=== PATIENT | female | born 1985 | race Caucasian/White ===

== ENCOUNTER 2017-01-04 08:55 | Inpatient (IN) | payer OTHER ==
[~2017-01-04] VITALS: Ht 162.6 cm; Wt 65.0 kg
[2017-01-04] VITALS (29 sets, daily range): BP systolic 94–138; BP diastolic 66–122; PULSE 88–128; RESP 18; TEMP 91; Ht 162.6 cm; Wt 65.0 kg
[~2017-01-04 08:55] MED LIST: EPINEPHrine 0.1 MG/ML SYG ONE; NA BICARBONATE 8.4% 50 ML SYG ONE
[2017-01-04] MEDS ORDERED: SOD CHLORIDE 0.9% 1,000 ML IV STA (09:23)
[2017-01-04] MEDS ORDERED: SOD CHLORIDE 0.9% 100 ML ONE (09:35)
[2017-01-04] MEDS ORDERED: IOHEXOL 100 ML ONE (09:35)
[2017-01-04 09:40] LABS: ADD SCAN DIFF NO
--- NOTE | 2017-01-04 09:41 | ERA ---
ER Documentation Chief Complaint Date/Time DATE: 01/04/17 TIME: 09:30 Chief Complaint BIB RA @0850 INTUBATED CPR IN PROGRESS , PEA ON MONITOR HPI Patient is a 31-year-old female brought in by ambulance for cardiac arrest. Per report the patient was drinking heavily last night. She appeared somewhat intoxicated this morning, and complained of shortness of breath. She then became unresponsive. No bystander CPR was performed. Paramedics were called, and found the patient to be pulseless with ventricular fibrillation. She was defibrillated for V. fib and V. tach 5 times, with conversion to narrow complex tachycardia without pulse. She was given amiodarone bolus, and 4 amp of epinephrine. She was intubated in the field. Past medical history of hypertension only was obtained from family. Approximate transport time was 25 minutes from arrival of EMS. ROS All systems reviewed and are negative except as per history of present illness. Medications Home Meds Unable to Obtain Active Prescriptions or Reported Meds Allergies Allergies: Coded Allergies: Unable to Assess (Verified Allergy, Unknown, PT NONRESPONSIVE, 01/04/17) PER RN PMhx/Soc Past medical history: Hypertension, acute renal failure, pancreatitis Past surgical history: Breast implants, tummy tuck noted on exam, further history unobtainable. Social history: Drinks alcohol, other social history unobtainable. History of Surgery: Yes (BREAST IMPLANT) Anesthesia Reaction: No Hx Neurological Disorder: No Hx Respiratory Disorders: No Hx Cardiac Disorders: Yes (HTN ) Hx Psychiatric Problems: No Hx Miscellaneous Medical Probl: No Hx Alcohol Use: Yes Hx Substance Use: No (UNK ) Hx Tobacco Use: No (UNK) Smoking Status: Unknown if ever smoked FmHx Unobtainable Physical Exam Vitals Vital Signs Date Time Temp Pulse Resp B/P Pulse Ox O2 Delivery O2 Flow Rate FiO2 01/04/17 12:15 96.2 112 18 132/118 100 Mechanical Ventilator 01/04/17 11:45 97.4 119 18 117/98 100 Mechanical Ventilator 01/04/17 11:15 97.6 120 18 135/102 100 Mechanical Ventilator 01/04/17 11:05 97.6 128 18 125/110 100 Mechanical Ventilator 01/04/17 10:50 97.9 129 18 108/94 100 Mechanical Ventilator 01/04/17 10:10 112 18 116/88 100 Mechanical Ventilator 01/04/17 09:30 97.8 100 129/95 99 Mechanical Ventilator 01/04/17 09:00 128 27 97 100 01/04/17 09:00 157 111/70 94 Ambu Bag 01/04/17 08:55 132 0 0/0 0 01/04/17 08:55 Bag Valve Mask 15 Physical Exam Const: Pulseless, unresponsive Head: Atraumatic Eyes: Normal Conjunctiva, no pallor. Pupils fixed and dilated. ENT: Normal External Ears, Nose and Mouth. No signs of trauma Neck: No mass, no signs of trauma Resp: Clear to auscultation bilaterally, no rales Cardio: Irregularly irregular rhythm, tachycardia, no murmur Abd: Soft, non distended. Skin: No petechiae or rashes Ext: No cyanosis, or edema, no signs of trauma Neur: Unresponsive, no spontaneous movement Psych: Cannot assess Result Diagram: 01/04/1792401/04/17924 Results 24 hrs Laboratory Tests Test 01/04/17 09:23 01/04/17 09:25 01/04/17 10:20 01/04/17 10:46 Blood Gas Specimen Source Blood arterial Arterial Blood Date Drawn 01/04/2017 11:16:20 AM Arterial Blood pH (Temp corrected) 7.188 Arterial Blood pCO2 (Temp correct) 44.5mmhg Arterial Blood pO2 (Temp corrected) 577.9mmHG Arterial Blood HCO3 16.5mmol/L Arterial Blood Base Excess -11.3mmol/L Arterial Blood Oxygen Saturation 99.6mmHG [place] Test N/A Arterial Blood Gas Puncture Site Right Brachial Arterial Blood Carboxyhemoglobin 0.3% Arterial Blood Methemoglobin 0.6% Blood Gas A-a O2 Differential 90.6mmHg Oxyhemoglobin Percent 98.7% Total Hemoglobin 12.6g/dl Blood Gas Temperature 37.0C Blood Gas Respiration Rate 18.0 Blood Gas Actual Respiration Rate 18 Blood Gas Modality VENT - AC FiO2 100.0% Blood Gas Tidal Volume 450.0mL Blood Gas Critical Value Read Back MENG Maguire Blood Gas Notified Whom [facility] Blood Gas Notified Time 01/04/2017 11:20:50 AM White Blood Count 16.410^3/ul Red Blood Count 3.0710^6/ul Hemoglobin 10.6g/dl Hematocrit 31.6% Mean Corpuscular Volume 102.9fl Mean Corpuscular Hemoglobin 34.5pg Mean Corpuscular Hemoglobin Concent 33.5g/dl Red Cell Distribution Width 14.9% Platelet Count 04352^3/UL Mean Platelet Volume 11.5fl Neutrophils % % Lymphocytes % % Monocytes % % Neutrophils # 10^3/ul Lymphocytes # 10^3/ul Monocytes # 10^3/ul Prothrombin Time 17.0Sec Prothrombin Time Ratio 1.3 INR International Normalized Ratio 1.38 Activated Partial Thromboplast Time 35.0Sec Sodium Level 143mmol/L Potassium Level 2.4mmol/L Chloride Level 99mmol/L Carbon Dioxide Level 18mmol/L Anion Gap 28 Blood Urea Nitrogen 5mg/dl Creatinine 0.63mg/dl Glucose Level 229mg/dl Lactic Acid Level 12.7mmol/L Calcium Level 7.2mg/dl Magnesium Level 1.8mg/dl Total Bilirubin 0.5mg/dl Direct Bilirubin 0.00mg/dl Indirect Bilirubin 0.5mg/dl Aspartate Amino Transf (AST/SGOT) 417IU/L Alanine Aminotransferase (ALT/SGPT) 91IU/L Alkaline Phosphatase 301IU/L Troponin I 0.072ng/ml Total Protein 5.9g/dl Albumin 2.7g/dl Globulin 3.20g/dl Albumin/Globulin Ratio 0.84 Lipase 479U/L Serum HCG, Qualitative NEGATIVE Salicylates Level < 1.0mg/dl Acetaminophen Level < 10.0ug/ml Ethyl Alcohol Level 142.0mg/dl Urine Color LT. YELLOW Urine Clarity CLEAR Urine pH 6.0 Urine Specific [place] 1.015 Urine Ketones NEGATIVE Urine Nitrite NEGATIVE Urine Bilirubin NEGATIVE Urine Urobilinogen 0.2 E.U./dL Urine Leukocyte Esterase NEGATIVE Urine Microscopic RBC 2-5/HPF Urine Microscopic WBC 10-25/HPF Urine Epithelial Cells MODERATE Urine Bacteria FEW Urine Mucus FEW Urine Hemoglobin 2+ Urine Glucose 0.1%% Urine Total Protein 2+ Urine Opiates Screen NEGATIVE Urine Barbiturates NEGATIVE Urine Amphetamines Screen NEGATIVE Urine Benzodiazepines Screen NEGATIVE Urine Cocaine Screen NEGATIVE Urine Cannabinoids NEGATIVE Bedside Glucose 154mg/dL Test 01/04/17 11:54 01/04/17 11:55 Bedside Glucose 150mg/dL Lactic Acid Level 8.3mmol/L Current Medications Medications (Trade) Dose Ordered Sig/Deena Route PRN Reason Start Time Stop Time Status Last Admin Dose Admin Sodium Chloride 1,000 ml @ 1,000 mls/hr Q1H STAT IV 01/04/17 09:23 01/04/17 10:27 DC 01/04/17 09:35 Iohexol 100 ml @ STK-MED ONCE .ROUTE 01/04/17 09:35 01/04/17 09:36 DC Sodium Chloride 100 ml @ STK-MED ONCE .ROUTE 01/04/17 09:35 01/04/17 09:36 DC Fentanyl (Sublimaze) 100 ml @ 2.5 mls/hr TITRATE IV 01/04/17 10:00 01/04/17 10:31 Midazolam HCl (Versed) 2 mg ONCE ONCE IV 01/04/17 10:00 01/04/17 10:01 DC 01/04/17 10:21 Midazolam HCl (Versed) 2 mg ONCE ONCE IV 01/04/17 10:00 01/04/17 10:01 Cancel Fentanyl 100 mcg 100 mcg ONCE ONCE IV 01/04/17 10:00 01/04/17 10:01 DC 01/04/17 09:55 Midazolam HCl (Versed) 50 ml @ 2 mls/hr ONCE IV 01/04/17 10:30 01/04/17 10:21 Midazolam HCl 2 mg 2 mg ONCE ONCE IV 01/04/17 10:30 01/04/17 10:31 DC 01/04/17 10:31 Potassium Chloride 250 ml @ 62.5 mls/hr Q4H IVPB 01/04/17 10:30 01/04/17 18:29 01/04/17 11:22 Magnesium Sulfate (Magnesium Sulfate 2 Gm/50 ml) 50 ml @ 25 mls/hr ONCE ONCE IVPB 01/04/17 10:30 01/04/17 12:29 DC 01/04/17 10:36 Thiamine HCl 100 mg 100 mg ONCE ONCE IM 01/04/17 10:30 01/04/17 10:31 DC 01/04/17 11:23 Sodium Chloride 1,000 ml @ 1,000 mls/hr Q1H ONCE IV 01/04/17 10:30 01/04/17 11:29 DC 01/04/17 10:49 Sodium Chloride 1,860 ml @ 930 mls/hr BOLUS X1 ONCE IV 01/04/17 10:30 01/04/17 12:29 DC 01/04/17 10:50 Ceftriaxone Sodium 50 ml @ 100 mls/hr ONCE ONCE IVPB 01/04/17 10:30 01/04/17 10:31 DC Ceftriaxone Sodium (Rocephin) 50 ml @ 100 mls/hr ONCE ONCE IVPB 01/04/17 10:30 01/04/17 10:59 DC 01/04/17 11:22 Vecuronium [place] 6 mg 6 mg ONCE ONCE IV 01/04/17 11:30 01/04/17 11:32 DC 01/04/17 12:10 Vecuronium [place] 100 mg/ Dextrose 100 ml @ 3.6 mls/hr Q24H ONCE IV 01/04/17 11:30 01/05/17 11:29 01/04/17 12:19 Insulin Human Regular/Sodium Chloride (Novolin-R/NS) 100 ml @ 0 mls/hr ONCE STAT IV 01/04/17 12:02 01/04/17 12:03 DC Procedures/MDM EKG read by me: 901, rate 157 Rhythm: Rapid atrial fibrillation [place]: Rightward axis Intervals: Normal ST-T waves: Anterior ST depression, inferolateral T-wave inversion Ectopy: No Q-waves: No Impression: Rapid atrial fibrillation with anterior ST depression. Central Line Placement by me: Patient consented, sterilely draped, full prep, gown, glove, mask, time out performed. Anesthesia: None Location: Right femoral Device: Multiple lumen Technique: Ultrasound-guided. Seldinger technique. Secured with suture. Results: Venous return from all ports with easy saline flush. Arterial puncture without dilation. No evidence of postprocedure hematoma. No other complication noted. Guide wire retrieved and disposed of. ED Ultrasound: Central line placed by me using concurrent ultrasound guidance. Real time image archived in the medical record confirms vascular anatomy. MDM: Patient is a 31-year-old female with unwitnessed cardiac arrest. She was found to be in ventricular fibrillation. She was defibrillated 5 times and converted to a narrow complex rapid rhythm prior to ER arrival. There was no return of spontaneous circulation prior to ER arrival. patient was intubated prior to ER arrival. On ER arrival, CPR was continued, and 1 amp of epinephrine and 1 amp of sodium bicarbonate were administered. At the first pulse check, a femoral and carotid pulses were palpated. An EKG was obtained and showed rapid atrial fibrillation with nonspecific ST-T wave changes. ET tube placement was confirmed by auscultation and chest x-ray. A right femoral central line was placed for access in a critically ill patient. I discussed the case with Dr. Vitale, on-call senior windows systems administrator, who stated that he did not believe the patient was a good candidate for cardiac cath. The patient did not have return of neurologic function. CT head and CT pulmonary angiogram are unremarkable. Laboratory evaluation showed leukocytosis and lactic acidosis. There is no fever or signs of infection, but ceftriaxone was given for possible sepsis, and blood and urine cultures were sent. Laboratory evaluation also revealed a severe hypokalemia. Potassium of 2.4 is likely falsely elevated by the patient's acidosis, so underlying hypokalemia is likely worse. The patient was administered IV potassium and magnesium. I suspect that the cause of the patient's ventricular fibrillation is the underlying hypokalemia. The patient also had slightly elevated LFTs, and a right upper quadrant ultrasound will be obtained, although I suspect that this is related to recent alcohol abuse and cardiac arrest. The patient was given copious IV fluids, and hypothermia protocol was initiated. On further history from the patient's mother, there is no history of drug abuse, depression or suicidality. There is history of hospitalization 1 month ago for acute renal failure and pancreatitis related to alcohol abuse. The mother also states that the patient drank heavily last night. Prior to developing respiratory distress and becoming altered, she was conversant with the mother this morning. The patient will be admitted to the ICU for hypothermia protocol, treatment of electrolyte abnormalities, further septic workup and treatment of lactic acidosis. Critical Care: Time: 45 minutes exlcuding all billable procedures. Treatments/Evaluations: Close monitoring and treatment of unstable vital signs, cardiorespiratory, and neurologic status, while maintaining tight balance of fluid, respiratory, and cardiac interventions. Departure Diagnosis: Primary Impression: Cardiac arrest Additional Impressions: Lactic acidosis Atrial fibrillation with rapid ventricular response Coma Qualified Code: R40.2433 - Malcolm coma scale total score 3-8, at hospital admission Alcohol abuse Hypokalemia Condition: Critical NICOLAS FAN MD January 04, 2017 09:41
[2017-01-04 09:42] LABS: ABNORMAL IP MESSAGE 1; HEMATOCRIT 31.6 % (37.0-47.0); HEMOGLOBIN 10.6 g/dl (12.0-16.0); MEAN CORPUSCULAR HEMOGLOBIN 34.5 pg (29.0-33.0); MEAN CORPUSCULAR HGB CONC 33.5 g/dl (32.0-37.0); MEAN CORPUSCULAR VOLUME 102.9 fl (82.0-101.0); MEAN PLATELET VOLUME 11.5 fl (7.4-10.4); PLATELET COUNT 109 10^3/UL (140-415); RED BLOOD COUNT 3.07 10^6/ul (4.20-5.40); RED CELL DISTRIBUTION WIDTH 14.9 % (11.5-14.5); WHITE BLOOD COUNT 16.4 10^3/ul (4.8-10.8)
--- NOTE | 2017-01-04 09:55 | RADRPT ---
PROCEDURE: XR Chest. CLINICAL INDICATION: Cardiac arrest TECHNIQUE: Single AP view of the chest were obtained COMPARISON: None FINDINGS: The heart is moderately enlarged. An endotracheal tube extends the mid trachea. The pulmonary vascu lature are unremarkable. The aorta is unremarkable. There is no lung consolidation, pleural effusi on or pneumothorax. There is no acute osseous abnormality. IMPRESSION: Endotracheal tube appears appropriately positioned. There is moderate cardiomegaly present. RPTAT: AA .Tonya Regalado MD, Date Time Electronically viewed and signed by .Tonya Regalado MD, on 01/04/2017 09:55 .J/
[2017-01-04 09:58] LABS: ALBUMIN 2.7 g/dl (3.3-4.9); CHLORIDE 99 mmol/L (97-110); SODIUM 143 mmol/L (135-144)
[2017-01-04 10:00] LABS: BILIRUBIN,INDIRECT 0.5 mg/dl (0-1.1); BILIRUBIN,TOTAL 0.5 mg/dl (0.2-1.3); CARBON DIOXIDE 18 mmol/L (21-31); CREATININE 0.63 mg/dl (0.44-1.00); INR 1.38; PT RATIO 1.3
[2017-01-04] MEDS ORDERED: FENTAnyl 50 MCG/ML VIAL IV ONE (10:00)
[2017-01-04] MEDS ORDERED: MIDAZOLAM 1 MG/ML 2 ML INJ IV ONE ×2 (10:00→10:30)
[2017-01-04] MEDS ORDERED: MIDAZOLAM 1 MG/ML 5 ML INJ IV ONE (10:00)
[2017-01-04 10:01] LABS: ALANINE AMINOTRANSFERASE 91 IU/L (13-69); ALKALINE PHOSPHATASE 301 IU/L (42-121); ASPARTATE AMINO TRANSFERASE 417 IU/L (15-46); BLOOD UREA NITROGEN 5 mg/dl (7-20); CALCIUM 7.2 mg/dl (8.4-10.2); GLUCOSE 229 mg/dl (70-220); TOTAL PROTEIN 5.9 g/dl (6.1-8.1)
[2017-01-04 10:14] LABS: ACETAMINOPHEN < 10.0 ug/ml (10.0-30.0); POTASSIUM 2.4 mmol/L (3.5-5.1); SALICYLATE < 1.0 mg/dl (5.0-30.0)
[2017-01-04 10:15] LABS: ALBUMIN/GLOBULIN RATIO 0.84; ANION GAP 28 (8-16)
--- NOTE | 2017-01-04 10:18 | RADRPT ---
PROCEDURE: CT Chest Angiogram with contrast. CLINICAL INDICATION: Shortness of breath TECHNIQUE: CT scan of the chest with contrast was performed on a multidetector high-resolution CT scanner. The patient was scanned following the uncomplicated intravenous administration of 100 cc o f Isovue 300 contrast. Coronal and sagittal reformatted images were obtained from the axial source images. Additional 3D volumetric renderings were created. Images were reviewed on a [employer] PACS workstation. The total exam CTDI equals 49/16 mGy and the total exam DLP equals 601 mGy-cm. O ne or more of the following dose reduction techniques were used: Automated exposure control, Adjustm ent of the mA and/or kV according to patient size, and/or use of iterative reconstruction technique. COMPARISON: None available FINDINGS: Technically adequate exam for the evaluation of the pulmonary arteries to the segmental level. No in traluminal filling defects are seen. Endotracheal tube terminates above the pauline. Patchy infiltrates are identified in the bilateral l ungs with preferential involvement of the right upper lobe and superior segment right lower lobe. B ibasilar atelectasis. No mediastinal hematoma seen. No mediastinal or hilar lymphadenopathy. No significant pleural or pericardial effusion. Bilateral breast implants. Diffuse hypoattenuation of the liver. Partially imaged dilatation of the left renal collecting syst em. IMPRESSION: No evidence of pulmonary embolus. No mediastinal hematoma seen. Patchy infiltrates are identified in the bilateral lungs with preferential involvement of the right upper lobe and superior segment right lower lobe. This may be due to infection, pneumonitis, pulmona ry hemorrhage, or developing edema. No pleural or pericardial effusion. Hepatic steatosis. Partially imaged dilatation of the left renal collecting system. Consider abdominal CT or renal ult rasound for further characterization. RPTAT: AA .Kiran Calhoun MD, Date Time Electronically viewed and signed by .Kiran Calhoun MD, MD on 01/04/2017 10:18 .T/
--- NOTE | 2017-01-04 10:20 | RADRPT ---
PROCEDURE: CT Brain without contrast. CLINICAL INDICATION: Cardiac arrest; Neurologic deficit TECHNIQUE: A CT of the brain was performed on multidetector high-resolution CT scanner utilizing a xial sections from the skull base through the vertex without contrast. One or more of the following dose reduction techniques were used: Automated exposure control, Adjustment of the mA and/or kV acc ording to patient size, and/or use of iterative reconstruction technique. DOSE: CTDI = 44 mGy and the DLP = 720 mGy-cm. COMPARISON: None available FINDINGS: No acute intracranial hemorrhage, significant mass effect or midline shift. The bonilla-white different iation is grossly preserved. The ventricles are normal in size for age. Right maxillary sinus air fluid level. IMPRESSION: No acute intracranial findings. Right maxillary sinus air fluid level. RPTAT: AA .Kiran Calhoun MD, MD Date Time Electronically viewed and signed by .Kiran Calhoun MD, on 01/04/2017 10:19 .T/
[2017-01-04] MEDS: MIDAZOLAM (DRIP) 50 mg/50 mL 50 ML IV SCH ×2 (10:21→16:44)
[2017-01-04] MEDS ORDERED: CEFTRIAXONE 2 GM/50 ML (PMX) 50 ML IVPB ONE (10:30)
[2017-01-04] MEDS ORDERED: MAGNESIUM SULFATE 2 GM/50 ML 50 ML IVPB ONE (10:30)
[2017-01-04] MEDS ORDERED: THIAMINE 200 MG INJ IM ONE (10:30)
[2017-01-04] MEDS ORDERED: CEFTRIAXONE 1 GM/50 ML (PMX) 50 ML IVPB ONE (10:30)
[2017-01-04] MEDS ORDERED: SOD CHLORIDE 0.9% 1,860 ML IV ONE (10:30)
[2017-01-04] MEDS ORDERED: SOD CHLORIDE 0.9% 1,000 ML IV ONE ×2 (10:30→13:00)
[2017-01-04] MEDS: FENTAnyl (DRIP) 1000 mcg/100mL 100 ML IV SCH ×2 (10:31→21:35)
[2017-01-04 11:21] LABS: AADO2 Arterial 90.6 mmHg (7.0-24.0); Arterial Base Excess -11.3 mmol/L (-3.0-3); Arterial COHb 0.3 % (0.0-3.0); Arterial Fraction of Oxyhgb 98.7 % (93.0-99.0); Arterial HCO3 16.5 mmol/L (22.0-26.0); Arterial MetHb 0.6 % (0.0-1.5); Arterial Total Hemglobin 12.6 g/dl (12.0-18.0); MODE VENT - AC
[2017-01-04] MEDS: POTASSIUM CHLORIDE 250 ML IVPB SCH ×2 (11:22→15:25)
[2017-01-04] MEDS ORDERED: VECURONIUM 10 MG VIAL IV ONE (11:30)
[2017-01-04] MEDS ORDERED: VECURONIUM 100 MG in DEXTROSE 5% 100 ML IV ONE (11:30)
[2017-01-04 11:39] LABS: ADD UMIC YES; URINE BILIRUBIN (Dip) NEGATIVE (NEGATIVE); URINE BLOOD (Dip) 2+ (NEGATIVE); URINE COLOR LT. YELLOW (YELLOW); URINE KETONES (Dip) NEGATIVE (NEGATIVE); URINE LEUKOCYTE ESTERASE (Dip) NEGATIVE (NEGATIVE); URINE NITRITE (Dip) NEGATIVE (NEGATIVE); URINE TOTAL PROTEIN (Dip) 2+ (NEGATIVE); URINE UROBILINOGEN (Dip) 0.2 E.U./dL (0.1-1.0)
[2017-01-04 11:47] LABS: BARBITURATES NEGATIVE (NEGATIVE); BENZODIAZEPINES NEGATIVE (NEGATIVE); CANNABINOIDS NEGATIVE (NEGATIVE); COCAINE NEGATIVE (NEGATIVE); OPIATES NEGATIVE (NEGATIVE)
[2017-01-04 11:57] LABS: BACTERIA,URINE FEW; MUCUS,URINE FEW
[2017-01-04] MEDS ORDERED: INSULIN HUMAN REGULAR 100 UNIT in SOD CHLORIDE 0.9% 99 ML IV STA (12:02)
[2017-01-04] MEDS ORDERED: MULTIVITAMINS 10 ML, THIAMINE 100 MG, FOLIC ACID 1 MG, MAGNESIUM SULFATE 2 GM in SOD CH... IV ONE (13:00)
[2017-01-04] MEDS ORDERED: HYDROCODONE/APAP (5/325) TAB PO PRN (13:30)
[2017-01-04] MEDS ORDERED: MEPERIDINE 25 MG INJ IV PRN ×2 (13:30)
[2017-01-04] MEDS ORDERED: hydrALAzine 20 MG INJ IV PRN (13:30)
[2017-01-04] MEDS ORDERED: DOCUSATE SODIUM 100 MG CAP PO PRN (13:30)
[2017-01-04] MEDS ORDERED: ACETAMINOPHEN 650MG/20.3ML CUP PO PRN (13:30)
[2017-01-04] MEDS ORDERED: ACETAMINOPHEN 650 MG SUPP PR PRN (13:30)
[2017-01-04] MEDS: ACCU-CHEK XX SCH ×11 (13:30→23:36)
[2017-01-04] MEDS ORDERED: NITROGLYCERIN (SL) 0.4 MG TAB SL PRN (13:30)
[2017-01-04] MEDS ORDERED: MAGNESIUM HYDROXIDE 30ML CUP PO PRN (13:30)
[2017-01-04] MEDS ORDERED: morphine 2 MG INJ IV PRN (13:30)
[2017-01-04] MEDS ORDERED: NA PHOSPHATE/BIPHOS 133 ML ENEMA PR PRN (13:30)
[2017-01-04] MEDS ORDERED: ONDANSETRON 4 MG INJ IV PRN (13:30)
[2017-01-04] MEDS ORDERED: DEXTROSE 50% 50 ML SYRINGE IV PRN (13:30)
[2017-01-04] MEDS ORDERED: Discontinue all previous diabetes medication and insulin orders. XX ONE (13:30)
[2017-01-04] MEDS ORDERED: ALBUTEROL/IPRATROPIUM (NEB) 3 ML AMP HHN PRN (13:30)
[2017-01-04] MEDS ORDERED: Treatment of Hypoglycemia: XX SCH (13:30)
[2017-01-04] MEDS ORDERED: LORAZEPAM 2 MG INJ IV PRN (13:30)
[2017-01-04] MEDS ORDERED: NACL 0.9% 3 ML SYG IV SCH (13:30)
[2017-01-04] MEDS ORDERED: ACETAMINOPHEN 325 MG TAB PO PRN (13:30)
--- NOTE | 2017-01-04 13:31 | RADRPT ---
PROCEDURE: US Abdomen. CLINICAL INDICATION: Elevated LFTs TECHNIQUE: Multiple real-time images were acquired of the patient's right upper quadrant abdomen a nd retroperitoneum utilizing a high resolution transducer. COMPARISON: None FINDINGS: The liver demonstrates increased echogenicity. The liver is enlarged in size and no focal solid les ions are seen. The liver measures 20.6 cm in length. The portal vein is patent with normal direction of flow. No intrahepatic biliary dilatation is seen. No gallstones are identified within the gallbladder. There is a 5 mm polyp within the gallbladder. There is no pericholecystic fluid or gallbladder wall thickening. The common bile duct measures 4 m m in maximal dimension. The pancreas is not seen due to overlying bowel gas. No free fluid is identified. The right kidney is not seen due to overlying bowel gas. RPTAT: AA IMPRESSION: Mild hepatomegaly with fatty infiltration of the liver. Small polyp within the gallbladder. Pancreas and right kidney not visualized due to overlying bowel gas. .Vj White MD, MD Date Time Electronically viewed and signed by .Vj White MD, on 01/04/2017 13:31 .S/
[2017-01-04 15:51] LABS: CK-MB 21.9 ng/ml (0.0-2.4)
[2017-01-04] MEDS ORDERED: VANCOMYCIN IV PER PHARMACY XX SCH (16:00)
--- NOTE | 2017-01-04 16:00 | CONS ---
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 Initial trop was normal but will need to be trended and will be expected to be elevated with such prolonged resuscitation. Doubt CAD in this young woman and would assume other reasons such as coronary dissection would present as a STEMI. Now that she is on hypothermic protocol, will have to manage conservatively and see if her mental status recovers after which we can decide if she is a cardiac cath candidate. Severe hypokalemia: being corrected, Check again later and replete to keep K at least >4 Acute respiratory failure: secondary to above Severe acidosis: due to above Alcohol abuse Pancreatitis: secondary to alcohol abuse Shock liver: secondary to cardiac arrest H/o pancreatitis -prognosis guarded and meaningful neurologic recovery is to be determined -replete K >4, Mg>2 -trend trops -check echo Problems: Consultation Date/Type/Reason Admit Date/Time January 04, 2017 at 13:19 Date of Consultation: January 04, 2017 Type of Consultation: Cardiology Reason for Consultation VF arrest Referring Provider: EDIN BOURNE Hx of Present Illness 31 yo F with a h/o alcohol abuse, pancreatitis, who was brought in by ambulance for VF arrest. Per records, the pt was drinking heavily again last night and this am she became SOB and had witnessed arrest. She did not receive bystander CPR and when paramedics arrived, she was in VF/VT requiring multiple defibrillations. She was intubated in the field and brought to the ED. She was noted to have afib with RVR. engineering director interventional cardiology was called and the pt was deemed to not be a cardiac cath candidate presumably due to her prolonged resuscitation. The pt was placed on a hypothermia protocol. K was 2.4 on admission, pH was 7.1. Unable to obtain Past Medical History Medical History: other (unknown) Social History Alcohol Use: heavy Smoking Status: Unknown if ever smoked Exam/Review of Systems Vital Signs Vitals Vital Signs Date Time Temp Pulse Resp B/P Pulse Ox O2 Delivery O2 Flow Rate FiO2 01/04/17 15:45 97 18 117/97 96 Mechanical Ventilator 5/14/17 15:00 90.2 01/04/17 14:40 50 01/04/17 08:55 15 Exam Constitutional: No alert Head: atraumatic, normocephalic ENMT: intubated Neck: No jvd Respiratory: clear to auscultation, diminished breath sounds, No crackles/rales Cardiovascular: regular rate and rhythm, No edema Gastrointestinal: non-tender, soft Extremities: other (cool from hypothermia ) Neurological: No nl mental status Results Initial EKG: afib with RVR, nonspecific IVCD, mild ST depression throughout Result Diagram: 01/04/1792401/04/17924 Results 24 hrs Laboratory Tests Test 01/04/17 09:23 01/04/17 09:25 01/04/17 10:20 01/04/17 10:46 Blood Gas Specimen Source Blood arterial Arterial Blood Date Drawn 01/04/2017 11:16:20 AM Arterial Blood pH (Temp corrected) 7.188 *L Arterial Blood pCO2 (Temp correct) 44.5 Arterial Blood pO2 (Temp corrected) 577.9 H Arterial Blood HCO3 16.5 L Arterial Blood Base Excess -11.3 L Arterial Blood Oxygen Saturation 99.6 H Eliot Test N/A Arterial Blood Gas Puncture Site Right Brachial Arterial Blood Carboxyhemoglobin 0.3 Arterial Blood Methemoglobin 0.6 Blood Gas A-a O2 Differential 90.6 H Oxyhemoglobin Percent 98.7 Total Hemoglobin 12.6 Blood Gas Temperature 37.0 Blood Gas Respiration Rate 18.0 Blood Gas Actual Respiration Rate 18 Blood Gas Modality VENT - AC FiO2 100.0 Blood Gas Tidal Volume 450.0 Blood Gas Critical Value Read Back MENG Maguire Blood Gas Notified Whom [facility] Blood Gas Notified Time 01/04/2017 11:20:50 AM White Blood Count 16.4 H Red Blood Count 3.07 L Hemoglobin 10.6 L Hematocrit 31.6 L Mean Corpuscular Volume 102.9 H Mean Corpuscular Hemoglobin 34.5 H Mean Corpuscular Hemoglobin Concent 33.5 Red Cell Distribution Width 14.9 H Platelet Count 109 L Mean Platelet Volume 11.5 H Neutrophils % Lymphocytes % Monocytes % Neutrophils # Lymphocytes # Monocytes # Prothrombin Time 17.0 H Prothrombin Time Ratio 1.3 INR International Normalized Ratio 1.38 Activated Partial Thromboplast Time 35.0 Sodium Level 143 Potassium Level 2.4 *L Chloride Level 99 Carbon Dioxide Level 18 L Anion Gap 28 H Blood Urea Nitrogen 5 L Creatinine 0.63 Glucose Level 229 H Lactic Acid Level 12.7 *H Calcium Level 7.2 L Magnesium Level 1.8 Total Bilirubin 0.5 Direct Bilirubin 0.00 Indirect Bilirubin 0.5 Aspartate Amino Transf (AST/SGOT) 417 H Alanine Aminotransferase (ALT/SGPT) 91 H Alkaline Phosphatase 301 H Troponin I 0.072 Total Protein 5.9 L Albumin 2.7 L Globulin 3.20 Albumin/Globulin Ratio 0.84 Lipase 479 H Serum HCG, Qualitative NEGATIVE Salicylates Level < 1.0 L Acetaminophen Level < 10.0 L Ethyl Alcohol Level 142.0 Urine Color LT. YELLOW Urine Clarity CLEAR Urine pH 6.0 Urine Specific [place] 1.015 Urine Ketones NEGATIVE Urine Nitrite NEGATIVE Urine Bilirubin NEGATIVE Urine Urobilinogen 0.2 E.U./dL Urine Leukocyte Esterase NEGATIVE Urine Microscopic RBC 2-5 Urine Microscopic WBC 10-25 Urine Epithelial Cells MODERATE Urine Bacteria FEW Urine Mucus FEW Urine Hemoglobin 2+ H Urine Glucose 0.1% H Urine Total Protein 2+ H Urine Opiates Screen NEGATIVE Urine Barbiturates NEGATIVE Urine Amphetamines Screen NEGATIVE Urine Benzodiazepines Screen NEGATIVE Urine Cocaine Screen NEGATIVE Urine Cannabinoids NEGATIVE Bedside Glucose 154 Test 01/04/17 11:54 01/04/17 11:55 01/04/17 13:01 01/04/17 14:10 Bedside Glucose 150 172 Lactic Acid Level 8.3 *H 5.5 *H Test 01/04/17 14:11 01/04/17 15:16 01/04/17 15:32 Bedside Glucose 155 169 Creatine Kinase 453 H Creatine Kinase Index 4.8 Creatinine Kinase MB (Mass) 21.90 H Troponin I Pending Medications Medications Current Medications Fentanyl 100 ml @ 2.5 mls/hr TITRATE IV Last administered on 01/04/17 10:31; Admin Dose 2.5 MLS/HR; Start 01/04/17 at 10:00 Midazolam HCl 50 ml @ 2 mls/hr ONCE IV Last administered on 01/04/17 10:21; Admin Dose 2 MLS/HR; Start 01/04/17 at 10:30 Potassium Chloride 250 ml @ 62.5 mls/hr Q4H IVPB Last administered on 15:25; Admin Dose 62.5 MLS/HR; Start 01/04/17 at 10:30; Stop 01/04/17 at 18 :29 Vecuronium Check/Dextrose (Norcuron/D5W) 100 ml @ 3.6 mls/hr Q24H ONCE IV Last administered on 01/04/17t 12:19; Admin Dose 3.6 MLS/HR; Start 01/04/17 at 11:30; Stop 01/05/17 at 11:29 Ondansetron HCl (Zofran Inj) 4 mg Q6H PRN IV NAUSEA AND/OR VOMITING; Start at 13:30 Acetaminophen (Tylenol Tab) 650 mg Q6H PRN PO PAIN LEVEL 1-3 OR FEVER; Start at 13:30 Acetaminophen/ Hydrocodone Bitart ([place] (5/325)) 1 tab Q6H PRN PO MODERATE PAIN LEVEL 4-6; Start 01/04/17 at 13:30 Morphine Sulfate (morphine) 2 mg Q4H PRN IV SEVERE PAIN LEVEL 7-10; Start 01/04 at 13:30 Docusate Sodium (Colace) 100 mg Q12H PRN PO CONSTIPATION; Start 01/04/17 at 13: 30 Magnesium Hydroxide (Milk Of Mag) 30 ml DAILY PRN PO CONSTIPATION; Start at 13:30 Sodium Biphosphate/ Sodium Phosphate (Fleet Enema) 133 ml DAILY PRN [place] CONSTIPATION; Start 01/04/17 at 13:30 Pantoprazole (Protonix Iv) 40 mg DAILY@06 IV ; Start 01/05/17 at 06:00 Heparin Sodium (Porcine) (Heparin (5000 Units/0.5 ml)) 5,000 unit Q12 SC ; Start 01/04/17 at 21:00 Lorazepam 1 mg 1 mg Q1H PRN IV CONTROL WITHDRAWAL SYMPTOMS; Start 01/04/17 at 13:30 Potassium Chloride/Sodium Chloride (KCl/NS) 1,010 ml @ 100 mls/hr Q10H6M IV ; Start 01/04/17 at 13:07 Hydralazine HCl (Apresoline) 10 mg Q6H PRN IV ELEVATED BLOOD PRESSURE; Start at 13:30 Nitroglycerin (Nitroglycerin (Sl Tab) 0.4 Mg) 1 tab Q5M PRN SL ANGINA; Start at 13:30 Acetaminophen (Tylenol Supp) 650 mg Q4H PRN AK TEMP > 37C; Start 01/04/17 at 13 :30 Acetaminophen (Tylenol Liquid) 650 mg Q4H PRN PO TEMP > 37C; Start 01/04/17 at 13:30 Acetaminophen (Tylenol Supp) 500 mg Q6H [place] ; Start 01/05/17 at 13:30 Acetaminophen (Tylenol Liquid) 500 mg Q6H PO ; Start 01/05/17 at 13:30 Meperidine HCl (Demerol) 12.5 mg Q4H PRN IV POST OPERATIVE SHIVERING; Start at 13:30 Meperidine HCl (Demerol) 25 mg Q4H PRN IV POST OPERATIVE SHIVERING; Start 01/04 at 13:30 Eye Lubricant ([place] Oint) 1 applic Q6 BOTH EYES ; Start 01/04/17 at 18:00 Eye Lubricant (Artificial Tears Oph) 2 drop Q6 BOTH EYES ; Start 01/04/17 at 18: 00 Diagnostic Test (Pha) (Accu-Chek) 1 ea Q1H XX Last administered on 01/04/17t 15 :34; Admin Dose 1 EA; Start 01/04/17 at 13:30 Dextrose (D50w Syringe) 25 ml Q15M PRN IV Till BS 80 mg/dL or above x2; Start 01/04/17 at 13:30 Dextrose 50 ml 50 ml Q15M PRN IV Till BS 80 mg/dL or above x2; Start 01/04/17 at 13:30 Multivitamins 10 ml/Thiamine HCl 100 mg/Folic Acid 1 mg/Sodium Chloride 1,011.2 ml @ 125 mls/ hr DAILY@09 IVPB ; Start 01/05/17 at 09:00 Cefepime HCl (Maxipime 2gm/50 ml (Pmx)) 50 ml @ 100 mls/hr Q12 IVPB ; Start at 17:00 OLY GUZMÁN January 04, 2017 15:59
[2017-01-04 16:04] LABS: TROPONIN-I 14.6 ng/ml (0.00-0.12)
[2017-01-04] MEDS ORDERED: ASPIRIN 300 MG SUPP PR ONE (16:30)
[2017-01-04 17:01] LABS: Allen Test ACCEPTAB; Arterial Base Excess -1.4 mmol/L (-3.0-3); Arterial COHb 0.3 % (0.0-3.0); Arterial HCO3 22.2 mmol/L (22.0-26.0); Arterial MetHb 0.2 % (0.0-1.5); Arterial Total Hemglobin 12.3 g/dl (12.0-18.0); MODE VENT - AC
[2017-01-04] MEDS: CEFEPIME 2GM/50 ML (PMX) 50 ML IVPB SCH ×2 (17:25→21:35)
[2017-01-04 17:39] LABS: AADO2 Arterial 331.1 mmHg (7.0-24.0); Allen Test ACCEPTAB; Arterial Base Excess -1.7 mmol/L (-3.0-3); Arterial COHb 0.3 % (0.0-3.0); Arterial HCO3 22.1 mmol/L (22.0-26.0); Arterial MetHb 0.3 % (0.0-1.5); Arterial Total Hemglobin 12.5 g/dl (12.0-18.0); MODE VENT - AC
--- NOTE | 2017-01-04 17:52 | HP ---
DATE OF ADMISSION: 01/04/2017 CHIEF COMPLAINT: Cardiac arrest. HISTORY OF PRESENT ILLNESS: A 31-year-old female with past medical history of heavy alcohol use, pr ior pancreatitis, possible renal insufficiency 1 month ago, who was brought in by ambulance today be cause of cardiac arrest. Most of the information obtained from the ER documentation and speaking wi th the ER physician as the patient is presently intubated and on hypothermia protocol. Apparently, the patient has been drinking heavily last night and appeared somewhat intoxicated this morning and she was having shortness of breath symptoms. Apparently, a family member was around when the patien t became unresponsive and paramedics were called. The patient initially was found to be pulseless w ith Vfib arrest. It looks like she was defibrillated for Vfib and Vtach 5 times and eventually give n amiodarone as well and given 4 amps of epinephrine as well and intubated in the field, and then wa s brought into the ER. She proceeded to have atrial fibrillation with rapid rate, and pulses were a ble to be palpated. At that time, she was found with severe hypokalemia of 2.4, lactic acid of 12 o n admission as well and again the hypothermia protocol was started. PAST MEDICAL HISTORY: As stated above as well as essential hypertension. MEDICATIONS AT HOME: Unknown. PAST SURGICAL HISTORY: Based on records, breast implants and tummy tuck. SOCIAL HISTORY: Again, alcohol use. Unclear how much she drinks. The rest of the social history c ould not be obtained. HOME MEDICINES: Unknown. PHYSICAL EXAMINATION: VITAL SIGNS: T-max 97.8, presently temperature is 90.2. Pulse is 100 to 157, respirations 18 to 27 , blood pressure is 108/94, saturating at 100% on mechanical ventilation, FIO2 of 50%. GENERAL: The patient is lying in bed, intubated and sedated. HEENT: Unable to fully assess. NECK: Supple, no thyromegaly. LUNGS: Slightly distant breath sounds bilaterally. CARDIOVASCULAR: Irregularly irregular rhythm noted. No rubs or gallops. ABDOMEN: Soft, nontender, nondistended. Normal bowel sounds. No guarding. MUSCULOSKELETAL: No lower extremity edema bilaterally. NEUROLOGIC: Unable to fully assess as the patient is intubated. LABORATORIES: WBC 16.4, hemoglobin 10.6, hematocrit 31.6, platelets 109. Sodium 143, potassium 2.4 , chloride 99, CO2 18, BUN 5, creatinine 0.63, glucose 229, again lactic acid initially was 12.7, no w it is 8.3, now down to 5.5, that is the trend. Creatine kinase is elevated at 453, lipase is elev ated at 479. UA showed negative nitrites, negative leukocyte esterase, but there was 2+ protein. B lood alcohol level is elevated at 142. INR is 1.38. ABG showed initially a pH of 7.18, pCO2 of 44, PaO2 of 577, bicarbonate of 16.5. IMAGING: She had some imaging studies performed including gallbladder ultrasound that showed mild h epatomegaly with fatty infiltration of the liver, small polyp within the gallbladder and then there was a CTA of the chest that showed no PE, no mediastinal hematoma seen. There is patchy infiltrates in the bilateral lungs with preferential involvement of the right upper lobe and superior segment o f the right lower lobe, may be due to infection pneumonitis, pulmonary hemorrhage or developing katalina a but no pleural or pericardial effusions. There is some hepatic steatosis. Then, she had a head C T: No acute intracranial findings. There was a chest x-ray, moderate cardiomegaly present. ASSESSMENT AND PLAN: A 31-year-old female coming in with cardiac arrest status post shock x5, epine phrine x4, now on hypothermia protocol with severe lactic acidosis, intubated and sedated, hypokalem ia. 1. Status post cardiac arrest. Again, continue hypothermia protocol. We got a cardiology consult, pulmonary consult because the patient is intubated, also get a neurology consult. Followup EEG, fo llow up TSH, A1c, lipid panel. Continue broad spectrum antibiotics, trend the lactic acid, suppleme nt the low potassium levels. Follow up final culture results. Keep the patient n.p.o., monitor uri ne output, follow up siebel consultant recommendations. The patient may benefit from heart catheterization when she is more medically stable and alert. Followup EEG results, it has been ordered as well. 2. Hypokalemia. Again, we are going to replete that, see #1. Monitor heart rate very carefully on monitor. 3. History of hypertension, again continue to monitor for now. Blood pressure is presently stable. Alcohol use. Again, monitor for signs of withdrawal, banana bag, Ativan p.r.n. Consider Librium as well. 4. History of pancreatitis. Again, her lipase is elevated and again n.p.o., see #1, IV fluids. 5. Gastrointestinal prophylaxis. She is on PPI. 6. Deep venous thrombosis prophylaxis, for now Heparin subcutaneously. Dictated By: EDIN MOREJON Conf#: [id number] DID#: [id number]
[2017-01-04] MEDS ORDERED: VANCOMYCIN 1.25 GM in SOD CHLORIDE 0.9% 250 ML IVPB SCH (18:00)
--- NOTE | 2017-01-04 18:54 | CONS ---
DATE OF ADMISSION: 01/04/2017 DATE OF CONSULTATION: REFERRING PHYSICIAN: Dr. Bourne. HISTORY OF PRESENT ILLNESS: The patient is 31 years old lady with a past medical history of alcohol abuse, pancreatitis, renal insufficiency. The patient admitted because of cardiopulmonary arrest. The patient had CPR at her home by her daughter. Ambulance came, per the history, within 20 minute s. The patient at ER had started on hypothermia protocol, intubated, on propofol and fentanyl patch in which I got a call about her today for Dr. Bourne for more evaluation and treatment. CURRENT MEDICATIONS: Include: 1. Tylenol 500 mg every 6 hours as needed. 2. Protonix 40 mg once a day. 3. Vancomycin every 8 hours. 4. Heparin sulfate 5000 units subcutaneous twice a day. 5. Eye lubricant, artificial tears 2 drops every 6 hours. 6. Cefepime every 12 hours. 7. Zofran 4 mg every 6 hours as needed. 8. Tylenol 650 mg every 4 hours as needed. 9. Stirum 1 tablet every 6 hours as needed. 10. Morphine sulfate 2 mg every 4 hours as needed. 11. Milk of magnesia 30 mg once a day as needed. 12. Lorazepam 1 mg every 8 hours as needed. 13. Demerol 25 mg every 4 hours as needed. 14. Midazolam as needed. 15. Potassium chloride as needed. 16. Fentanyl patch titrate. PHYSICAL EXAMINATION: GENERAL: The patient is intubated, does not follow any verbal commands, unresponsive for painful st imuli. CRANIAL NERVES: Cranial nerve II: Pupils equal on both sides, reactive to light. Cranial nerves I II, IV, and : Extraocular muscles intact for doll's maneuver. Cranial nerves V and VII: Intact corneal reflex. Cranial nerves VIII through XII: Could not assess. MOTOR EXAM: Slight movement for painful stimuli. SENSATION, COORDINATION, AND GAIT: Could not assess. HEART: Irregular irregularity. LUNGS: Equal breath sounds. ABDOMEN: Soft, relaxed, nondistended. No tenderness. ASSESSMENT AND PLAN 1. The patient is 31 years old status post cardiopulmonary arrest with multiple shocks x5, epinephr ine also x4. 2. 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 We will follow up the patient with christiano ctroencephalogram. 3. Hypokalemia. To be corrected with KCl and follow up the patient with complete metabolic panel. 4. History of alcohol use, pancreatitis. Follow up the patient on her with lipase and amylase leve ls. 5. Keep the patient under deep venous thrombosis prophylaxis in the form of heparin 5000 units subc utaneously twice a day. 6. Keep the patient under decubitus ulcer prophylaxis. Again, thank you for asking me to see the patient with you. Dictated By: CHELSEA PEREZ/RAFAEL Conf#: [id number] DID#: [id number] CC: EDIN BOURNE;*EndCC*
[2017-01-04] MEDS: ARTIFICIAL TEARS 15 ML OPH BOTH EYES SCH (19:30)
[2017-01-04] MEDS: OCULAR LUBRICANT 3.5 GM OPH OINT BOTH EYES SCH (20:00)
[2017-01-04] MEDS: POTASSIUM CHLORIDE 20 MEQ in SOD CHLORIDE 0.9% 1,000 ML IV SCH ×2 (20:00→23:47)
[2017-01-04 20:02] LABS: CK-MB 29.6 ng/ml (0.0-2.4)
[2017-01-04 20:10] LABS: TROPONIN-I 10.9 ng/ml (0.00-0.12)
[2017-01-04] MEDS: HEPARIN 5,000 UNIT/0.5 ML VIAL SC SCH (21:38)
[2017-01-04 23:03] LABS: AADO2 Arterial 317.1 mmHg (7.0-24.0); Arterial Base Excess -6.4 mmol/L (-3.0-3); Arterial COHb 0.3 % (0.0-3.0); Arterial Fraction of Oxyhgb 95.6 % (93.0-99.0); Arterial HCO3 18.4 mmol/L (22.0-26.0); Arterial MetHb 0.3 % (0.0-1.5); Arterial Total Hemglobin 12.3 g/dl (12.0-18.0); Blood Gas Low PEEP Setting 0 cmH2O; MODE 450
[2017-01-04] MEDS: INSULIN HUMAN REGULAR 100 UNIT in SOD CHLORIDE 0.9% 99 ML IV SCH (23:30)
[2017-01-05] VITALS (42 sets, daily range): BP systolic 89–119; BP diastolic 63–98; PULSE 90–135; RESP 18–26
[2017-01-05] MEDS: ACCU-CHEK XX SCH ×24 (00:30→23:39)
[2017-01-05 00:36] LABS: ADD SCAN DIFF NO
[2017-01-05 00:37] LABS: BASOPHILS % 0.2 % (0.0-2.0); HEMATOCRIT 33.4 % (37.0-47.0); HEMOGLOBIN 11.2 g/dl (12.0-16.0); LYMPHOCYTES # 0.9 10^3/ul (0.8-2.9); LYMPHOCYTES % 8.7 % (15.0-51.0); MEAN CORPUSCULAR HEMOGLOBIN 34.1 pg (29.0-33.0); MEAN CORPUSCULAR HGB CONC 33.5 g/dl (32.0-37.0); MEAN CORPUSCULAR VOLUME 101.8 fl (82.0-101.0); MEAN PLATELET VOLUME 12.3 fl (7.4-10.4); MONOCYTE # 0.6 10^3/ul (0.3-0.9); MONOCYTES % 5.3 % (0.0-11.0); NEUTROPHILS % 85.4 % (39.0-77.0); NUCLEATED RED BLOOD CELLS% 0.2 /100WBC (0.0-0.0); PLATELET COUNT 120 10^3/UL (140-415); RED BLOOD COUNT 3.28 10^6/ul (4.20-5.40); RED CELL DISTRIBUTION WIDTH 15.2 % (11.5-14.5); WHITE BLOOD COUNT 10.6 10^3/ul (4.8-10.8)
[2017-01-05 00:43] LABS: ALBUMIN 3.2 g/dl (3.3-4.9); ALBUMIN/GLOBULIN RATIO 0.88; BILIRUBIN,DIRECT 0.3 mg/dl (0.00-0.20); BILIRUBIN,INDIRECT 0.6 mg/dl (0-1.1); BILIRUBIN,TOTAL 0.9 mg/dl (0.2-1.3); CALCIUM 6.4 mg/dl (8.4-10.2); CREATININE 0.44 mg/dl (0.44-1.00); MAGNESIUM 1.8 mg/dl (1.7-2.5); PHOSPHORUS 2.6 mg/dl (2.5-4.9); POTASSIUM 4.9 mmol/L (3.5-5.1); TOTAL PROTEIN 6.8 g/dl (6.1-8.1)
[2017-01-05 00:46] LABS: INR 1.26; PROTIME 15.9 Sec (12.2-14.2); PT RATIO 1.2
[2017-01-05 00:47] LABS: PARTIAL THROMBOPLASTIN TIME 33.2 Sec (25.0-35.0)
[2017-01-05] MEDS: ARTIFICIAL TEARS 15 ML OPH BOTH EYES SCH ×5 (01:49→23:32)
[2017-01-05] MEDS: OCULAR LUBRICANT 3.5 GM OPH OINT BOTH EYES SCH ×5 (01:49→23:33)
[2017-01-05] MEDS ORDERED: SOD CHLORIDE 0.9% 500 ML IV ONE ×2 (02:15→07:30)
[2017-01-05] MEDS: SOD CHLORIDE 0.9% 1,000 ML IV SCH ×3 (02:25→20:22)
[2017-01-05] MEDS: VANCOMYCIN 1 GM in NS 250 ML IVPB SCH ×2 (02:25→10:22)
[2017-01-05] MEDS ORDERED: MIDAZOLAM (DRIP) 50 mg/50 mL 50 ML IV STA (03:39)
[2017-01-05] MEDS ORDERED: VECURONIUM 100 MG in DEXTROSE 5% 100 ML IV SCH (05:00)
[2017-01-05 05:04] LABS: AADO2 Arterial 335.2 mmHg (7.0-24.0); Allen Test ACCEPTAB; Arterial Base Excess -5.4 mmol/L (-3.0-3); Arterial COHb 0.3 % (0.0-3.0); Arterial Fraction of Oxyhgb 95.6 % (93.0-99.0); Arterial HCO3 18.7 mmol/L (22.0-26.0); Arterial MetHb 0.2 % (0.0-1.5); Arterial Total Hemglobin 12.7 g/dl (12.0-18.0); MODE VENT - AC
[2017-01-05 06:01] LABS: ADD SCAN DIFF NO
[2017-01-05 06:02] LABS: BASOPHILS % 0.2 % (0.0-2.0); HEMATOCRIT 35.5 % (37.0-47.0); HEMOGLOBIN 11.6 g/dl (12.0-16.0); LYMPHOCYTES # 1.4 10^3/ul (0.8-2.9); MEAN CORPUSCULAR HEMOGLOBIN 33.6 pg (29.0-33.0); MEAN CORPUSCULAR HGB CONC 32.7 g/dl (32.0-37.0); MEAN CORPUSCULAR VOLUME 102.9 fl (82.0-101.0); MEAN PLATELET VOLUME 11.5 fl (7.4-10.4); MONOCYTE # 0.5 10^3/ul (0.3-0.9); NEUTROPHIL # 8.8 10^3/ul (1.6-7.5); NEUTROPHILS % 81.5 % (39.0-77.0); NUCLEATED RED BLOOD CELLS% 0.3 /100WBC (0.0-0.0); PLATELET COUNT 115 10^3/UL (140-415); RED BLOOD COUNT 3.45 10^6/ul (4.20-5.40); RED CELL DISTRIBUTION WIDTH 15.9 % (11.5-14.5); WHITE BLOOD COUNT 10.8 10^3/ul (4.8-10.8)
[2017-01-05 06:31] LABS: INR 1.29; PARTIAL THROMBOPLASTIN TIME 32.9 Sec (25.0-35.0); PROTIME 16.2 Sec (12.2-14.2); PT RATIO 1.3
[2017-01-05] MEDS: PANTOPRAZOLE 40 MG INJ IV SCH (06:31)
[2017-01-05 06:43] LABS: ALBUMIN 3.1 g/dl (3.3-4.9); ALBUMIN/GLOBULIN RATIO 0.83; BILIRUBIN,DIRECT 0.1 mg/dl (0.00-0.20); BILIRUBIN,INDIRECT 0.7 mg/dl (0-1.1); BILIRUBIN,TOTAL 0.8 mg/dl (0.2-1.3); CALCIUM 6.1 mg/dl (8.4-10.2); CREATININE 0.46 mg/dl (0.44-1.00); MAGNESIUM 1.5 mg/dl (1.7-2.5); PHOSPHORUS 2.9 mg/dl (2.5-4.9); TOTAL PROTEIN 6.8 g/dl (6.1-8.1)
[2017-01-05] MEDS ORDERED: DEXTROSE 50% 50 ML SYRINGE IV ONE (07:30)
[2017-01-05] MEDS ORDERED: INSULIN ASPART [NOVOLOG] 3 ML PEN SC ONE (07:30)
[2017-01-05] MEDS ORDERED: MAGNESIUM SULFATE 1 GM/D5W 100 ML IVPB ONE (07:30)
[2017-01-05 07:44] LABS: THYROID STIMULATING HORMONE 1.88 MIU/L (0.465-4.680)
[2017-01-05] MEDS ORDERED: MULTIVITAMINS 10 ML, THIAMINE 100 MG, FOLIC ACID 1 MG in SOD CHLORIDE 0.9% 1,000 ML IVPB SCH (09:00)
[2017-01-05] MEDS: CEFEPIME 2GM/50 ML (PMX) 50 ML IVPB SCH ×2 (09:07→21:15)
[2017-01-05] MEDS: HEPARIN 5,000 UNIT/0.5 ML VIAL SC SCH ×2 (09:08→21:15)
--- NOTE | 2017-01-05 10:03 | PN ---
DATE: 01/05/2017 TIME OF EVALUATION: 9:00 a.m. SUBJECTIVE: The patient remains on hypothermia protocol. OBJECTIVE DATA: VITAL SIGNS: Temperature 99, pulse rate 90, respiratory rate 18, blood pressure 106/94, oxygen saturation 100% on 60% FIO2 via mechanical ventilator. GENERAL: This is a well-built, well-nourished female patient lying in bed, orally intubated and mechanically ventilated. HEENT: Head normocephalic and atraumatic. Eyes: Anicteric sclerae. Conjunctivae clear. ENT: Nasal septum is midline. Oral mucosa is dry. Orally intubated. NECK: Supple. No JVD noticed. RESPIRATORY: Bilaterally diminished breath sounds. No adventitious breath sounds heard. Orally intubated and mechanically ventilated. CARDIAC: Regular rate and rhythm. S1, S2 heard. ABDOMEN: Soft, nontender and nondistended. Bowel sounds hypoactive in all 4 quadrants. GENITOURINARY: The patient has a Galvan catheter in place. EXTREMITIES: Bilateral lower extremity pedal pulses, nonpalpable. NEUROLOGIC: The patient currently on hypothermia protocol. LABORATORY AND DIAGNOSTIC DATA: WBC 10.8, hemoglobin 11.6, hematocrit 35.5, platelet count 115. Sodium 142, potassium 5.0, chloride 111, carbon dioxide 22 , anion gap 14, BUN 5, creatinine 0.46, glucose 129, calcium 6.1, phosphorus 2.9 , magnesium 1.5. ASSESSMENT AND PLAN: 1. Status post cardiac arrest. Continue hypothermia protocol. The patient being followed by cardiology and neurology. Pending electroencephalography. Poor prognosis. 2. Pancreatitis. Continue to trend pancreatic enzyme levels. Continue bowel rest. 3. Transaminitis, most probably secondary to underlying alcohol abuse, trend LFTs. Will avoid hepatotoxic medications. 4. Alcohol abuse with alcohol intoxication. Continue daily multivitamins. 5. Possible underlying aspiration, with underlying aspiration pneumonitis. Continue empiric antibiotics. 6. Hypokalemia, resolved. 7. Macrocytic anemia. Monitor H and H closely. 8. Lactic acidosis, most probably secondary to underlying cardiac arrest. Lactic acid level is improving. 9. History of essential hypertension. Currently blood pressure within normal limits. We will monitor. 10. Fluid, electrolytes and nutrition. N.p.o. Continue IV fluids. 11. Deep venous thrombosis prophylaxis. B/L SCDs. 12. Gastrointestinal prophylaxis. Proton pump inhibitors. 13. Plan. Continue hypothermia protocol. Await rewarming of the patient. Poor prognosis. Case discussed with Dr. Irvin. Critical care time: 40 minutes. MORALES IRVIN MD, AM/RAFAEL Conf#: [id number] DID#: [id number] MTDD
[2017-01-05] MEDS: FENTAnyl (DRIP) 1000 mcg/100mL 100 ML IV SCH ×2 (10:19→17:42)
--- NOTE | 2017-01-05 10:35 | CONS ---
DATE OF ADMISSION: 01/04/2017 DATE OF CONSULTATION: 01/05/2017 TYPE OF CONSULTATION: Pulmonary. REASON FOR CONSULTATION: Ventilator management and critical care management. HISTORY OF PRESENT ILLNESS: Note this H and P is based on data from the chart. The patient is intu bated on mechanical ventilation. No family members are present. This is a 31-year-old lady with hi story of heavy alcohol abuse prior history of pancreatitis, who came in yesterday having been found down by her daughter who is doing CPR on her. She was in ventricular fibrillation and required defi brillation and epinephrine and amiodarone in the field. 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 PAST MEDICAL HISTORY: Tummy tuck, breast implants. ALLERGIES: NONE PER CHART. SOCIAL HISTORY: Apparently significant alcohol history, drug history unknown. MEDICATIONS: Unknown. SYSTEMS REVIEW: A 12-point review of systems currently unable to perform. PHYSICAL EXAMINATION: GENERAL: Well-nourished, well-developed lady, intubated and sedated, paralyzed on mechanical ventil ation. VITAL SIGNS: Currently afebrile, temperature is 90, pulse is 90, blood pressure 106/95, O2 saturati on 96%, FIO2 of 60%, orally intubated. HEENT: Pupils are sluggish. CARDIAC: S1, S2, no added sounds or murmurs. CHEST: Diminished air entry bilaterally. ABDOMEN: Soft, nontender. No guarding or rebound. EXTREMITIES: No cyanosis, clubbing, 1+ edema. NEUROLOGIC: Unable to assess. LABORATORY DATA: White count 10.8 down from 16.4, hemoglobin 11.6, platelets of 115. Lactic acid i s 4.8. BUN 5, creatinine 0.46. ABG: pH 7.44, pCO2 26, PaO2 of 69, bicarbonate was 18. INR was 1. 29. Urinalysis unremarkable. Urine toxicology: The patient had significant alcohol in her bloodst ream, elevated at 142. DIAGNOSTIC DATA: Chest x-ray was reviewed, shows patchy bibasilar infiltrates, cardiomegaly. CT br ain showed no acute ischemic changes. No intracranial bleed. CT pulmonary angiogram showed no pulm onary embolus, possible pneumonitis. IMPRESSION AND PLAN: 1. Cardiopulmonary arrest. 2. Ventricular fibrillation. 3. Possible anoxic brain injury. 4. Possible aspiration pneumonia. 5. Renal insufficiency secondary to likely acute tubular necrosis injury. 6. Incomplete data. 7. Pancreatitis, likely secondary to a significant ETOH. PLAN: 1. Continue hypothermia protocol. Patient will start rewarming process later this morning. 2. Continue sedation and paralysis. 3. Antibiotics for aspiration pneumonia. 4. Neurology evaluation and recommendations once the patient has been rewarmed. 2. DVT and GI prophylaxis. Dictated By: LEAH SUMMERS/RAFAEL Conf#: [id number] DID#: [id number]
--- NOTE | 2017-01-05 10:50 | RADRPT ---
Echocardiogram Report Patient Name: LEYLA MALONE Gender: Female Date: 1985 Study Date: 05-Jan-2017 Branch Lending Manager: Keri Cormier RDCS Location: [facility] Ref. Physician: EDIN BOURNE Quality: Adequate Procedures: Transthoracic echocardiogram with complete 2D, M-Mode, and doppler examination. Indications: Cardiac Arrest. 2D/M Mode Doppler Measurement Value Normal Ranges Measurement Value Normal Ranges LVIDd 2D 4.9 3.5 - 5.6 cm AV Peak David 0.7 m/sec LVIDs 2D 4.0 2.1 - 4.1 cm AV Peak PG 2.0 mmHg FS 2D 18.0 % AI Peak PG 48.0 mmHg LVPWd 2D 1.0 0.6 - 1.1 cm AI Peak Daivd 3.5 m/sec IVSd 2D 1.0 0.6 - 1.1 cm AI PHT 384.0 msec IVS/LVPW 2D 1.1 LVOT Peak David 0.4 m/sec AoR Diam 2D 2.9 2.0 - 3.7 cm LVOT Peak PG 1.0 mmHg LA/Ao 2D 1 0 - 1 TR Peak David 2.1 m/sec EDV 2D 118.0 cm3 TR Peak PG 17.0 mmHg ESV 2D 65.0 cm3 RVSP 25.0 mmHg LA Dimen 2D 3.3 2.3 - 4.0 cm Findings Left Ventricle: Moderate enlargement of left ventricle cavity. Severe left ventricular systolic dysfunction. Ejection fraction is visually estimated at 20 %. Right Ventricle: Normal right ventricular size. Moderate right ventricular hypokinesis. Left Atrium: There is moderate enlargement of left atrium. Right Atrium: The right atrium is normal in size. Mitral Valve: Moderate mitral valve regurgitation. Aortic Valve: No hemodynamically significant aortic stenosis by doppler. Mild aortic valve regurgitation. Tricuspid Valve: Normal appearance of the tricuspid valve. Estimated peak PA systolic pressure 25 mmHg. There is mild tricuspid regurgitation. Pulmonic Valve: Pulmonic valve not well visualized. Pericardium: Normal pericardium with no significant pericardial effusion. Left pleural effusion seen. Aorta: Normal aortic root. IVC: Inferior vena cava without respiratory collapse, however, patient on ventilator. Conclusions 1.Moderate enlargement of left ventricle cavity. Severe left ventricular systolic dysfunction. Ejection fraction is visually estimated at 20 %. Severe global hypokinesis with slightly better motion at the base. No obvious apical thrombus. 2.Normal right ventricular size. Moderate right ventricular hypokinesis. 3.Moderate mitral valve regurgitation. 4.Mild aortic valve regurgitation. 5.Estimated peak PA systolic pressure 25 mmHg. RA pressure is 8 mmHg. Patient is on the ventilator. Electronically Signed By: Joe Nettles 05-Jan-2017 10:49:11 -[id number] Patient Name: LEYLA MALONE Study Date: 05-Jan-2017 [id number]
[2017-01-05] MEDS: MIDAZOLAM (DRIP) 50 mg/50 mL 50 ML IV SCH ×3 (10:53→21:12)
[2017-01-05] MEDS ORDERED: SOD CHLORIDE 0.9% 1,000 ML IV ONE (11:00)
[2017-01-05 11:32] LABS: AADO2 Arterial 320.2 mmHg (7.0-24.0); Allen Test ACCEPTAB; Arterial Base Excess -4.6 mmol/L (-3.0-3); Arterial COHb 0.3 % (0.0-3.0); Arterial Fraction of Oxyhgb 96.6 % (93.0-99.0); Arterial HCO3 19.4 mmol/L (22.0-26.0); Arterial MetHb 0.2 % (0.0-1.5); Arterial Total Hemglobin 12.3 g/dl (12.0-18.0); MODE VENT - AC
[2017-01-05 11:45] LABS: ADD SCAN DIFF NO
[2017-01-05 11:50] LABS: BASOPHILS % 0.2 % (0.0-2.0); HEMATOCRIT 33.9 % (37.0-47.0); HEMOGLOBIN 11.3 g/dl (12.0-16.0); LYMPHOCYTES # 1.6 10^3/ul (0.8-2.9); LYMPHOCYTES % 17.5 % (15.0-51.0); MEAN CORPUSCULAR HEMOGLOBIN 34.8 pg (29.0-33.0); MEAN CORPUSCULAR HGB CONC 33.3 g/dl (32.0-37.0); MEAN CORPUSCULAR VOLUME 104.3 fl (82.0-101.0); MEAN PLATELET VOLUME 12.4 fl (7.4-10.4); MONOCYTE # 0.4 10^3/ul (0.3-0.9); NEUTROPHIL # 7.2 10^3/ul (1.6-7.5); NEUTROPHILS % 77.9 % (39.0-77.0); NUCLEATED RED BLOOD CELLS% 0.4 /100WBC (0.0-0.0); PLATELET COUNT 109 10^3/UL (140-415); RED BLOOD COUNT 3.25 10^6/ul (4.20-5.40); RED CELL DISTRIBUTION WIDTH 15.9 % (11.5-14.5); WHITE BLOOD COUNT 9.3 10^3/ul (4.8-10.8)
[2017-01-05 12:00] LABS: ALBUMIN 2.6 g/dl (3.3-4.9)
[2017-01-05 12:01] LABS: INR 1.3; POTASSIUM 4.2 mmol/L (3.5-5.1); PROTIME 16.3 Sec (12.2-14.2); PT RATIO 1.3
[2017-01-05 12:03] LABS: ALBUMIN/GLOBULIN RATIO 0.74; BILIRUBIN,INDIRECT 0.7 mg/dl (0-1.1); BILIRUBIN,TOTAL 0.7 mg/dl (0.2-1.3); CREATININE 0.45 mg/dl (0.44-1.00); PARTIAL THROMBOPLASTIN TIME 43.8 Sec (25.0-35.0); TOTAL PROTEIN 6.1 g/dl (6.1-8.1)
[2017-01-05 12:04] LABS: MAGNESIUM 1.9 mg/dl (1.7-2.5); PHOSPHORUS 2.9 mg/dl (2.5-4.9)
[2017-01-05] MEDS: ACETAMINOPHEN 650MG/20.3ML CUP PO SCH ×3 (13:55→23:31)
[2017-01-05] MEDS: ACETAMINOPHEN 650 MG SUPP PR SCH ×3 (13:55→23:31)
--- NOTE | 2017-01-05 16:23 | CONS ---
Date/Time of Note Date/Time of Note DATE: 01/05/17 TIME: 16:16 Assessment/Plan Assessment/Plan Chief Complaint/Hosp Course Assessment: Status post ventricular fibrillation cardiac arrest - secondary to severe hypokalemia vs cardiomyopathy Cardiomyopathy, LVEF 20% - likely alcoholic NSTEMI - likely from cardiac arrest, doubt coronary artery disease in young female Ventilator-dependent respiratory failure Transaminitis - secondary to shock liver Acute pancreatitis, with prior history of pancreatitis Alcohol abuse Severe hypokalemia on presentation - corrected Recommendations -rewarming from hypothermia protocol -keep K>4 and Mg>2 -coronary angiography if meaningful recovery of neurological function Problems: Consultation Date/Type/Reason Admit Date/Time January 04, 2017 at 13:19 Initial Consult Date 01/04/17 Type of Consultation: Cardiology 24 HR Interval Summary Free Text/Dictation Rewarming from hypothermia protocol. Hemodynamically stable. Sinus tachycardia in the 011s. Troponin peaked at 14 and downtrending. Detailed Summary Additional Comments Unable to obtain review of systems, patient is intubated. Exam/Review of Systems Vital Signs Vitals Vital Signs Date Time Temp Pulse Resp B/P Pulse Ox O2 Delivery O2 Flow Rate FiO2 01/05/17 16:00 113 01/05/17 15:45 18 100 60 01/05/17 15:00 92.0 90/79 Mechanical Ventilator 01/04/17 08:55 15 Intake and Output 01/04/17 01/04/17 01/05/17 14:59 22:59 06:59 Intake Total 3910 ml 2945.15 ml 711.20 ml Output Total 3900 ml 632 ml 530 ml Balance 10 ml 2313.15 ml 181.20 ml Exam Constitutional: No alert Head: atraumatic, normocephalic ENMT: intubated Neck: No jvd Respiratory: clear to auscultation, diminished breath sounds, No crackles/rales Cardiovascular: regular rate and rhythm, No edema Gastrointestinal: non-tender, soft Extremities: other (cool from hypothermia ) Neurological: No nl mental status Results Result Diagram: 01/05/17 1105 01/05/17 1105 Results 24 hrs Laboratory Tests Test 01/04/17 16:33 01/04/17 17:14 01/04/17 17:34 01/04/17 17:35 Bedside Glucose 157 126 Blood Gas Specimen Source Blood arterial Arterial Blood Date Drawn 01/04/2017 5:29:12 PM Arterial Blood pH (Temp corrected) 7.477 H Arterial Blood pCO2 (Temp correct) 29.6 L Arterial Blood pO2 (Temp corrected) 69.1 L Arterial Blood HCO3 22.1 Arterial Blood Base Excess -1.7 Arterial Blood Oxygen Saturation 95.6 Eliot Test ACCEPTAB Arterial Blood Gas Puncture Site Left Radial Arterial Blood Carboxyhemoglobin 0.3 Arterial Blood Methemoglobin 0.3 Blood Gas A-a O2 Differential 331.1 H Oxyhemoglobin Percent 95.0 Total Hemoglobin 12.5 Blood Gas Temperature 33.5 Blood Gas Respiration Rate 18.0 Blood Gas Actual Respiration Rate 18 Blood Gas Modality VENT - AC FiO2 60.0 Blood Gas Tidal Volume 450.0 Blood Gas Notified Whom AT Blood Gas Notified Time 01/04/2017 5:39:21 PM Lactic Acid Level 4.7 *H Test 01/04/17 18:38 01/04/17 19:30 01/04/17 20:48 01/04/17 21:47 Bedside Glucose 140 123 129 128 Hemoglobin A1c 4.8 Creatine Kinase 447 H Creatine Kinase Index 6.6 Creatinine Kinase MB (Mass) 29.60 H Troponin I 10.900 *H Thyroid Stimulating Hormone (TSH) 1.880 Test 01/04/17 21:50 01/04/17 23:00 01/04/17 23:42 01/05/17 00:50 White Blood Count 10.6 # Red Blood Count 3.28 L Hemoglobin 11.2 L Hematocrit 33.4 L Mean Corpuscular Volume 101.8 H Mean Corpuscular Hemoglobin 34.1 H Mean Corpuscular Hemoglobin Concent 33.5 Red Cell Distribution Width 15.2 H Platelet Count 120 L Mean Platelet Volume 12.3 H Neutrophils % 85.4 H Lymphocytes % 8.7 L Monocytes % 5.3 Eosinophils % 0.0 Basophils % 0.2 Nucleated Red Blood Cells % 0.2 H Neutrophils # 9.0 H Lymphocytes # 0.9 Monocytes # 0.6 Eosinophils # 0.0 Basophils # 0.0 Nucleated Red Blood Cells # 0.0 Prothrombin Time 15.9 H Prothrombin Time Ratio 1.2 INR International Normalized Ratio 1.26 Activated Partial Thromboplast Time 33.2 Fibrinogen 242.0 Sodium Level 142 Potassium Level 4.9 # Chloride Level 109 # Carbon Dioxide Level 23 Anion Gap 15 # Blood Urea Nitrogen 4 L Creatinine 0.44 Glucose Level 137 # Calcium Level 6.4 L Phosphorus Level 2.6 Magnesium Level 1.8 Total Bilirubin 0.9 Direct Bilirubin 0.30 #H Indirect Bilirubin 0.6 Aspartate Amino Transf (AST/SGOT) 577 H Alanine Aminotransferase (ALT/SGPT) 116 H Alkaline Phosphatase 368 H Total Protein 6.8 Albumin 3.2 L Globulin 3.60 H Albumin/Globulin Ratio 0.88 Amylase Level 190 H Lipase 737 H Blood Gas Specimen Source Blood arterial Arterial Blood Date Drawn 01/04/2017 10:50:15 PM Arterial Blood pH (Temp corrected) 7.386 Arterial Blood pCO2 (Temp correct) 30.5 L Arterial Blood pO2 (Temp corrected) 80.9 Arterial Blood HCO3 18.4 L Arterial Blood Base Excess -6.4 L Arterial Blood Oxygen Saturation 96.2 Eliot Test N/A Arterial Blood Gas Puncture Site Right Brachial Arterial Blood Carboxyhemoglobin 0.3 Arterial Blood Methemoglobin 0.3 Blood Gas A-a O2 Differential 317.1 H Oxyhemoglobin Percent 95.6 Total Hemoglobin 12.3 Blood Gas Temperature 34.4 Blood Gas Respiration Rate 18.0 Blood Gas Actual Respiration Rate 18 Blood Gas Modality 450 FiO2 60.0 Blood Gas Tidal Volume 450.0 Blood Gas Low PEEP Setting 0 Blood Gas Notified Whom UP Blood Gas Notified Time 01/04/2017 11:03:08 PM Bedside Glucose 145 Lactic Acid Level 5.0 *H Test 01/05/17 01:05 01/05/17 03:32 01/05/17 05:00 01/05/17 05:30 Bedside Glucose 119 129 Blood Gas Specimen Source Blood arterial Arterial Blood Date Drawn 01/05/2017 4:50:09 AM Arterial Blood pH (Temp corrected) 7.446 Arterial Blood pCO2 (Temp correct) 26.6 L Arterial Blood pO2 (Temp corrected) 69.5 L Arterial Blood HCO3 18.7 L Arterial Blood Base Excess -5.4 L Arterial Blood Oxygen Saturation 96.1 Eliot Test ACCEPTAB Arterial Blood Gas Puncture Site Left Radial Arterial Blood Carboxyhemoglobin 0.3 Arterial Blood Methemoglobin 0.2 Blood Gas A-a O2 Differential 335.2 H Oxyhemoglobin Percent 95.6 Total Hemoglobin 12.7 Blood Gas Temperature 32.6 Blood Gas Respiration Rate 18.0 Blood Gas Actual Respiration Rate 18 Blood Gas Modality VENT - AC FiO2 60.0 Blood Gas Tidal Volume 450.0 Blood Gas Notified Meryl FARR Blood Gas Notified Time 01/05/2017 5:04:36 AM White Blood Count 10.8 Red Blood Count 3.45 L Hemoglobin 11.6 L Hematocrit 35.5 L Mean Corpuscular Volume 102.9 H Mean Corpuscular Hemoglobin 33.6 H Mean Corpuscular Hemoglobin Concent 32.7 Red Cell Distribution Width 15.9 H Platelet Count 115 L Mean Platelet Volume 11.5 H Neutrophils % 81.5 H Lymphocytes % 13.0 L Monocytes % 5.0 Eosinophils % 0.0 Basophils % 0.2 Nucleated Red Blood Cells % 0.3 H Neutrophils # 8.8 H Lymphocytes # 1.4 Monocytes # 0.5 Eosinophils # 0.0 Basophils # 0.0 Nucleated Red Blood Cells # 0.0 Prothrombin Time 16.2 H Prothrombin Time Ratio 1.3 INR International Normalized Ratio 1.29 Activated Partial Thromboplast Time 32.9 Fibrinogen 293.0 # Sodium Level 142 Potassium Level 5.0 Chloride Level 111 H Carbon Dioxide Level 22 Anion Gap 14 Blood Urea Nitrogen 5 L Creatinine 0.46 Glucose Level 129 Hemoglobin A1c 4.8 Lactic Acid Level 4.8 *H Calcium Level 6.1 L Phosphorus Level 2.9 Magnesium Level 1.5 L Total Bilirubin 0.8 Direct Bilirubin 0.10 # Indirect Bilirubin 0.7 Aspartate Amino Transf (AST/SGOT) 467 H Alanine Aminotransferase (ALT/SGPT) 105 H Alkaline Phosphatase 325 H Total Protein 6.8 Albumin 3.1 L Globulin 3.70 H Albumin/Globulin Ratio 0.83 Triglycerides Level 146 Cholesterol Level 163 LDL Cholesterol, Calculated 54 HDL Cholesterol 80 Cholesterol/HDL Ratio 2.0 Amylase Level 194 H Lipase 733 H Thyroid Stimulating Hormone (TSH) 1.880 Test 01/05/17 05:38 01/05/17 07:42 01/05/17 09:16 01/05/17 10:41 Bedside Glucose 110 113 104 113 Test 01/05/17 11:00 01/05/17 11:05 01/05/17 12:42 01/05/17 13:41 Blood Gas Specimen Source Blood arterial Arterial Blood Date Drawn 01/05/2017 11:10:08 AM Arterial Blood pH (Temp corrected) 7.448 Arterial Blood pCO2 (Temp correct) 27.6 L Arterial Blood pO2 (Temp corrected) 82.5 Arterial Blood HCO3 19.4 L Arterial Blood Base Excess -4.6 L Arterial Blood Oxygen Saturation 97.1 Eliot Test ACCEPTAB Arterial Blood Gas Puncture Site Right Radial Arterial Blood Carboxyhemoglobin 0.3 Arterial Blood Methemoglobin 0.2 Blood Gas A-a O2 Differential 320.2 H Oxyhemoglobin Percent 96.6 Total Hemoglobin 12.3 Blood Gas Temperature 33.3 Blood Gas Respiration Rate 18.0 Blood Gas Actual Respiration Rate 18 Blood Gas Modality VENT - AC FiO2 60.0 Blood Gas Tidal Volume 450.0 Blood Gas Low PEEP Setting 5.0 Blood Gas Notified Whom JLD Blood Gas Notified Time 01/05/2017 11:32:08 AM White Blood Count 9.3 Red Blood Count 3.25 L Hemoglobin 11.3 L Hematocrit 33.9 L Mean Corpuscular Volume 104.3 H Mean Corpuscular Hemoglobin 34.8 H Mean Corpuscular Hemoglobin Concent 33.3 Red Cell Distribution Width 15.9 H Platelet Count 109 L Mean Platelet Volume 12.4 H Neutrophils % 77.9 H Lymphocytes % 17.5 Monocytes % 4.0 Eosinophils % 0.0 Basophils % 0.2 Nucleated Red Blood Cells % 0.4 H Neutrophils # 7.2 Lymphocytes # 1.6 Monocytes # 0.4 Eosinophils # 0.0 Basophils # 0.0 Nucleated Red Blood Cells # 0.0 Prothrombin Time 16.3 H Prothrombin Time Ratio 1.3 INR International Normalized Ratio 1.30 Activated Partial Thromboplast Time 43.8 H Fibrinogen 314.0 # Sodium Level 144 Potassium Level 4.4 Chloride Level 109 Carbon Dioxide Level 22 Anion Gap 17 H Blood Urea Nitrogen 5 L Creatinine 0.45 Glucose Level 114 Lactic Acid Level 3.4 H Calcium Level 6.0 L Phosphorus Level 2.9 Magnesium Level 1.9 Total Bilirubin 0.7 Direct Bilirubin 0.00 Indirect Bilirubin 0.7 Aspartate Amino Transf (AST/SGOT) 349 H Alanine Aminotransferase (ALT/SGPT) 94 H Alkaline Phosphatase 304 H Total Protein 6.1 Albumin 2.6 L Globulin 3.50 H Albumin/Globulin Ratio 0.74 Amylase Level 140 H Lipase 958 H Bedside Glucose 88 88 Test 01/05/17 15:57 Bedside Glucose 84 Medications Medications Current Medications Ondansetron HCl (Zofran Inj) 4 mg Q6H PRN IV NAUSEA AND/OR VOMITING; Start at 13:30 Acetaminophen (Tylenol Tab) 650 mg Q6H PRN PO PAIN LEVEL 1-3 OR FEVER; Start at 13:30 Acetaminophen/ Hydrocodone Bitart ([place] (5/325)) 1 tab Q6H PRN PO MODERATE PAIN LEVEL 4-6; Start 01/04/17 at 13:30 Morphine Sulfate (morphine) 2 mg Q4H PRN IV SEVERE PAIN LEVEL 7-10; Start 01/04 at 13:30 Docusate Sodium (Colace) 100 mg Q12H PRN PO CONSTIPATION; Start 01/04/17 at 13: 30 Magnesium Hydroxide (Milk Of Mag) 30 ml DAILY PRN PO CONSTIPATION; Start at 13:30 Sodium Biphosphate/ Sodium Phosphate (Fleet Enema) 133 ml DAILY PRN MD CONSTIPATION; Start 01/04/17 at 13:30 Pantoprazole (Protonix Iv) 40 mg DAILY@06 IV Last administered on 01/05/17 06: 31; Admin Dose 40 MG; Start 01/05/17 at 06:00 Heparin Sodium (Porcine) (Heparin (5000 Units/0.5 ml)) 5,000 unit Q12 SC Last administered on 01/05/17 09:08; Admin Dose 5,000 UNIT; Start 01/04/17 at 21:00 Lorazepam (Ativan) 1 mg Q1H PRN IV CONTROL WITHDRAWAL SYMPTOMS; Start 01/04/17 at 13:30 Hydralazine HCl (Apresoline) 10 mg Q6H PRN IV ELEVATED BLOOD PRESSURE; Start at 13:30 Nitroglycerin (Nitroglycerin (Sl Tab) 0.4 Mg) 1 tab Q5M PRN SL ANGINA; Start at 13:30 Acetaminophen (Tylenol Supp) 650 mg Q4H PRN MD TEMP > 37C; Start 01/04/17 at 13 :30 Acetaminophen (Tylenol Liquid) 650 mg Q4H PRN PO TEMP > 37C; Start 01/04/17 at 13:30 Acetaminophen (Tylenol Supp) 500 mg Q6H MD Last administered on 01/05/17 13:55 ; Admin Dose 500 MG; Start 01/05/17 at 13:30 Acetaminophen (Tylenol Liquid) 500 mg Q6H PO Last administered on 01/05/17 13: 55; Admin Dose 500 MG; Start 01/05/17 at 13:30 Meperidine HCl (Demerol) 12.5 mg Q4H PRN IV POST OPERATIVE SHIVERING; Start at 13:30 Meperidine HCl (Demerol) 25 mg Q4H PRN IV POST OPERATIVE SHIVERING; Start 01/04 at 13:30 Eye Lubricant (Akwa Oint) 1 applic Q6 BOTH EYES Last administered on 01/05/17 11:21; Admin Dose 1 APPLIC; Start 01/04/17 at 18:00 Eye Lubricant (Artificial Tears Oph) 2 drop Q6 BOTH EYES Last administered on 11:21; Admin Dose 2 DROP; Start 01/04/17 at 18:00 Diagnostic Test (Pha) (Accu-Chek) 1 ea Q1H XX Last administered on 01/05/17 15 :59; Admin Dose 1 EA; Start 01/04/17 at 13:30 Dextrose (D50w Syringe) 25 ml Q15M PRN IV Till BS 80 mg/dL or above x2; Start 01/04/17 at 13:30 Dextrose 50 ml 50 ml Q15M PRN IV Till BS 80 mg/dL or above x2; Start 01/04/17 at 13:30 Multivitamins 10 ml/Thiamine HCl 100 mg/Folic Acid 1 mg/Sodium Chloride 1,011.2 ml @ 125 mls/ hr DAILY@09 IVPB Last administered on 01/05/17 10:21; Admin Dose 125 MLS/HR; Start 01/05/17 at 09:00 Cefepime HCl 50 ml @ 100 mls/hr Q12 IVPB Last administered on 01/05/17 09:07 ; Admin Dose 100 MLS/HR; Start 01/04/17 at 17:00 Vancomycin HCl 250 ml @ 125 mls/hr Q8H IVPB Last administered on 01/05/17 10: 22; Admin Dose 125 MLS/HR; Start 01/05/17 at 02:00 Sodium Chloride 1,000 ml @ 100 mls/hr Q10H IV Last administered on 01/05/17 02:25; Admin Dose 100 MLS/HR; Start 01/05/17 at 02:30 Fentanyl 100 ml @ 2.5 mls/hr TITRATE IV Last administered on 5/15/17at 10:19; Admin Dose 10 MLS/HR; Start 01/05/17 at 04:00 Vecuronium [place] 100 mg/ Dextrose 100 ml @ 0 mls/hr TITRATE IV Last administered on 01/05/17 06:29; Admin Dose 3.25 MLS/HR; Start 01/05/17 at 05:00 Midazolam HCl (Versed) 50 ml @ 1 mls/hr TITRATE IV Last administered on 14:45; Admin Dose 10 MLS/HR; Start 01/05/17 at 10:30 Miscellaneous Information (*Rx Drug Level Order Reminder*) 1 ONCE ONCE XX ; Start 01/05/17 at 17:00; Stop 01/05/17 at 17:01 BRENNAN PRATT MD January 05, 2017 16:23
[2017-01-05] MEDS: DEXTROSE 50% 50 ML SYRINGE IV PRN ×2 (17:50→21:19)
[2017-01-05 18:11] LABS: ADD SCAN DIFF NO
[2017-01-05 18:14] LABS: ABNORMAL IP MESSAGE 1; BASOPHILS % 0.2 % (0.0-2.0); EOSINOPHILS % 0.1 % (0.0-7.0); HEMATOCRIT 32.1 % (37.0-47.0); HEMOGLOBIN 10.6 g/dl (12.0-16.0); LYMPHOCYTES % 22.8 % (15.0-51.0); MEAN CORPUSCULAR HEMOGLOBIN 34.4 pg (29.0-33.0); MEAN CORPUSCULAR VOLUME 104.2 fl (82.0-101.0); MEAN PLATELET VOLUME 12.1 fl (7.4-10.4); MONOCYTE # 0.2 10^3/ul (0.3-0.9); MONOCYTES % 2.2 % (0.0-11.0); NEUTROPHIL # 6.5 10^3/ul (1.6-7.5); NEUTROPHILS % 74.2 % (39.0-77.0); NUCLEATED RED BLOOD CELLS # 0.1 10^3/ul (0.0-0.0); NUCLEATED RED BLOOD CELLS% 0.6 /100WBC (0.0-0.0); PLATELET COUNT 90 10^3/UL (140-415); RED BLOOD COUNT 3.08 10^6/ul (4.20-5.40); RED CELL DISTRIBUTION WIDTH 16.2 % (11.5-14.5); WHITE BLOOD COUNT 8.7 10^3/ul (4.8-10.8)
[2017-01-05 18:31] LABS: ALBUMIN 2.4 g/dl (3.3-4.9)
[2017-01-05 18:32] LABS: INR 1.45; POTASSIUM 3.4 mmol/L (3.5-5.1); PROTIME 17.7 Sec (12.2-14.2); PT RATIO 1.4
[2017-01-05 18:33] LABS: PARTIAL THROMBOPLASTIN TIME 39.4 Sec (25.0-35.0)
[2017-01-05 18:34] LABS: CREATININE 0.48 mg/dl (0.44-1.00)
[2017-01-05 18:35] LABS: ALBUMIN/GLOBULIN RATIO 0.75; BILIRUBIN,INDIRECT 0.5 mg/dl (0-1.1); BILIRUBIN,TOTAL 0.5 mg/dl (0.2-1.3); PHOSPHORUS 2.6 mg/dl (2.5-4.9); TOTAL PROTEIN 5.6 g/dl (6.1-8.1)
[2017-01-05 18:36] LABS: MAGNESIUM 1.4 mg/dl (1.7-2.5)
[2017-01-05 18:47] LABS: CALCIUM 5.6 mg/dl (8.4-10.2)
[2017-01-05] MEDS ORDERED: MAGNESIUM SULFATE 2 GM/50 ML 50 ML IVPB ONE (19:00)
--- NOTE | 2017-01-05 20:23 | RADRPT ---
Vent Rate: 99 bpm RR Interval: 0 msec MI Interval: 136 msec QRS Duration: 82 msec QT Interval: 460 msec QTC Interval: 590 msec P-R-T Cope: 81 - 83 - 0 degrees Sinus rhythm with fusion complexes ST amp; T wave abnormality, consider inferior ischemia ST amp; T wave abnormality, consider anterolateral ischemia Prolonged QT Abnormal ECG Electronically Signed By: Cayetano Fagan [id number]
[2017-01-05] MEDS ORDERED: NORepinephrine 8MG/250 ML (PMX 250 ML ONE (21:38)
[2017-01-05] MEDS ORDERED: NA BICARBONATE 8.4% 50 ML SYG ONE (21:41)
[2017-01-05 22:02] LABS: ADD SCAN DIFF NO
[2017-01-05] MEDS ORDERED: NORepinephrine 8MG/250 ML (PMX 250 ML IV STA (22:02)
[2017-01-05 22:06] LABS: Arterial COHb 0.3 % (0.0-3.0); MODE VENT - AC
[2017-01-05 22:06] LABS: ABNORMAL IP MESSAGE 1; HEMOGLOBIN 9.7 g/dl (12.0-16.0); MEAN CORPUSCULAR HEMOGLOBIN 35.3 pg (29.0-33.0); MEAN CORPUSCULAR HGB CONC 33.4 g/dl (32.0-37.0); MEAN CORPUSCULAR VOLUME 105.5 fl (82.0-101.0); MEAN PLATELET VOLUME 11.7 fl (7.4-10.4); PLATELET COUNT 83 10^3/UL (140-415); RED BLOOD COUNT 2.75 10^6/ul (4.20-5.40); RED CELL DISTRIBUTION WIDTH 16.4 % (11.5-14.5)
[2017-01-05 22:19] LABS: ALBUMIN 1.7 g/dl (3.3-4.9)
[2017-01-05 22:20] LABS: INR 1.53; PROTIME 18.5 Sec (12.2-14.2); PT RATIO 1.4
[2017-01-05 22:21] LABS: PARTIAL THROMBOPLASTIN TIME 41.1 Sec (25.0-35.0)
[2017-01-05 22:22] LABS: ALBUMIN/GLOBULIN RATIO 0.68; BILIRUBIN,INDIRECT 0.5 mg/dl (0-1.1); BILIRUBIN,TOTAL 0.5 mg/dl (0.2-1.3); CREATININE 0.48 mg/dl (0.44-1.00); TOTAL PROTEIN 4.2 g/dl (6.1-8.1)
[2017-01-05 22:23] LABS: MAGNESIUM 3.6 mg/dl (1.7-2.5); PHOSPHORUS 2.3 mg/dl (2.5-4.9)
[2017-01-05] MEDS ORDERED: FUROSEMIDE 40 MG INJ IV ONE (22:30)
[2017-01-05 22:42] LABS: CALCIUM 5.2 mg/dl (8.4-10.2); POTASSIUM 2.4 mmol/L (3.5-5.1)
--- NOTE | 2017-01-05 22:47 | RADRPT ---
PROCEDURE: XR Chest. CLINICAL INDICATION: Respiratory distress. TECHNIQUE: Single frontal view of the chest. COMPARISON: None. FINDINGS: Endotracheal intubation is seen with tip about 3 cm above the pauline. Nasogastric tube in place wit h tip off bottom of the film, within the stomach. Left lung base dual transcutaneous pacing pads. The cardiomediastinal silhouette is within normal limits. The lungs are mildly underpenetrated secon radha to overlying soft tissues, and are otherwise clear. No signs of pleural fluid or pneumothorax a re seen. The osseous structures and soft tissues are unremarkable. IMPRESSION: 1. Endotracheal intubation is seen with tip about 3 cm above the pauline. 2. Nasogastric tube in place with tip in the stomach, although off bottom of the film. 3. Lungs are clear. RPTAT: [facility] Physician Kev Date Time Electronically viewed and signed by Physician Kev on 01/05/2017 22:47 RS/
[2017-01-05] MEDS ORDERED: LORAZEPAM 2 MG INJ IV ONE (23:00)
[2017-01-05] MEDS ORDERED: CALCIUM GLUCONATE 10% 2 GM in SOD CHLORIDE 0.9% 100 ML IVPB ONE (23:00)
[2017-01-05] MEDS: POTASSIUM CHLORIDE 250 ML IVPB SCH (23:20)
[2017-01-05] MEDS: D5W-0.45 NACL + KCL 20 MEQ 1,000 ML IV SCH (23:22)
[2017-01-05 23:29] LABS: EOSINOPHILS # 0.1 10^3/ul (0.0-0.5); LYMPHOCYTES # 3.5 10^3/ul (0.8-2.9); MONOCYTE # 0.1 10^3/ul (0.3-0.9); NEUTROPHIL # 6.9 10^3/ul (1.6-7.5)
[2017-01-05 23:31] LABS: PLATELET ESTIMATE PLT APPEAR DECREASED
[2017-01-05 23:33] LABS: AADO2 Arterial 596.4 mmHg (7.0-24.0); Arterial Fraction of Oxyhgb 88.8 % (93.0-99.0); Arterial HCO3 23.8 mmol/L (22.0-26.0); Arterial MetHb 0.4 % (0.0-1.5); Arterial Total Hemglobin 13.8 g/dl (12.0-18.0)
[2017-01-05] MEDS: VANCOMYCIN 750 MG in SOD CHLORIDE 0.9% 150 ML IVPB SCH (23:52)
[2017-01-06] VITALS (45 sets, daily range): BP systolic 54–119; BP diastolic 32–71; PULSE 0–140; RESP 18–31
[2017-01-06] MEDS ORDERED: DEXTROSE 5% WATER 500 ML BAG ONE
[2017-01-06] MEDS ORDERED: AMIODARONE 900 MG INJ ONE
[2017-01-06] MEDS ORDERED: EPINEPHrine 0.1 MG/ML SYG ONE ×2
[2017-01-06] MEDS ORDERED: MAGNESIUM SULFATE 1 GM/100 ML D5W IVPB ONE
[2017-01-06] MEDS ORDERED: NA BICARBONATE 8.4% 50 ML SYG ONE ×2
[2017-01-06] MEDS ORDERED: AMIODARONE 150 MG INJ ONE
[2017-01-06] MEDS: ACCU-CHEK XX SCH ×9 (00:38→09:04)
[2017-01-06] MEDS: PHENYLephrine 40 MG in DEXTROSE 5% 496 ML IV SCH ×2 (02:42→05:45)
[2017-01-06] MEDS ORDERED: METOPROLOL 5 MG INJ IV ONE (03:30)
[2017-01-06] MEDS: POTASSIUM CHLORIDE 250 ML IVPB SCH (03:31)
--- NOTE | 2017-01-06 03:33 | CONS ---
DATE OF ADMISSION: 01/04/2017 DATE OF CONSULTATION: NEUROLOGY CONSULTATION HISTORY OF PRESENT ILLNESS: The patient is a 31-year-old who used to drink one bottle of vodka, per her cousin, maybe 2 bottles a day for which the patient was admitted to [facility] around a month a go or a month and one-half for similar condition. The patient admitted here after she had a cardiop ulmonary arrest, with resuscitation per her daughter. The patient admitted by ambulance in which th e patient had hypothermia protocol, intubated, in which the patient is still under hypothermia kevin col, is not responsive. PHYSICAL EXAMINATION: GENERAL: On exam, the patient does not follow any simple commands. CRANIAL NERVES: Cranial nerve II: Pupils sluggish reaction to light. Cranial nerves III, IV, and : Extraocular muscles intact. Cranial nerve V and VII: Intact corneal reflex. Cranial nerves V III through XII: Could not assess. HEART: Regular rate and rhythm. LUNGS: Equal breath sounds. ABDOMEN: Soft, relaxed, nondistended. No tenderness. ASSESSMENT: 1. The patient is a 31-year-old with cardiopulmonary arrest. 2. Status post hypothermia protocol. 3. Anoxic brain injury, probably secondary to #1. PLAN: We will follow up the patient after the hypothermia protocol and keep the patient under deep venous thrombosis prophylaxis as well as decubitus ulcer prophylaxis for now. Electrolyte imbalance will be correct. Follow up the patient with possibility of DTs and watch her closely. Again, thank you for asking me to see the patient with you. Dictated By: CHELSEA PEREZ/RAFAEL Conf#: [id number] DID#: [id number]
[2017-01-06] MEDS ORDERED: DIGOXIN 500 MCG INJ IV STA (04:11)
[2017-01-06] MEDS ORDERED: DIGOXIN 500 MCG INJ IV ONE (04:12)
[2017-01-06] MEDS ORDERED: LORAZEPAM 2 MG INJ IV ONE (04:30)
[2017-01-06] MEDS ORDERED: ALBUMIN HUMAN 25% 100 ML IV ONE (05:30)
[2017-01-06] MEDS ORDERED: NA BICARBONATE 8.4% 50 ML SYG IV ONE (06:00)
[2017-01-06 06:01] LABS: ADD SCAN DIFF NO
[2017-01-06] MEDS ORDERED: ACETAMINOPHEN 650MG/20.3ML CUP PO SCH (06:05)
[2017-01-06 06:07] LABS: BASOPHILS % 0.1 % (0.0-2.0); HEMATOCRIT 33.9 % (37.0-47.0); HEMOGLOBIN 10.5 g/dl (12.0-16.0); LYMPHOCYTES # 0.7 10^3/ul (0.8-2.9); LYMPHOCYTES % 5.8 % (15.0-51.0); MEAN CORPUSCULAR HEMOGLOBIN 33.8 pg (29.0-33.0); MEAN PLATELET VOLUME 12.2 fl (7.4-10.4); MONOCYTE # 0.5 10^3/ul (0.3-0.9); NEUTROPHIL # 10.1 10^3/ul (1.6-7.5); NUCLEATED RED BLOOD CELLS # 0.2 10^3/ul (0.0-0.0); NUCLEATED RED BLOOD CELLS% 1.9 /100WBC (0.0-0.0); PLATELET COUNT 104 10^3/UL (140-415); RED BLOOD COUNT 3.11 10^6/ul (4.20-5.40); RED CELL DISTRIBUTION WIDTH 17.1 % (11.5-14.5); WHITE BLOOD COUNT 11.3 10^3/ul (4.8-10.8)
[2017-01-06] MEDS: ARTIFICIAL TEARS 15 ML OPH BOTH EYES SCH (06:10)
[2017-01-06] MEDS: OCULAR LUBRICANT 3.5 GM OPH OINT BOTH EYES SCH (06:11)
[2017-01-06] MEDS: MIDAZOLAM (DRIP) 50 mg/50 mL 50 ML IV SCH (06:12)
[2017-01-06] MEDS: PANTOPRAZOLE 40 MG INJ IV SCH (06:13)
[2017-01-06] MEDS: CHLORDIAZEPOXIDE 25 MG CAP PO SCH ×3 (06:13→09:20)
[2017-01-06] MEDS: VANCOMYCIN 750 MG in SOD CHLORIDE 0.9% 150 ML IVPB SCH (06:17)
[2017-01-06 06:19] LABS: INR 1.53; PROTIME 18.5 Sec (12.2-14.2); PT RATIO 1.4
[2017-01-06 06:20] LABS: PARTIAL THROMBOPLASTIN TIME 34.4 Sec (25.0-35.0)
[2017-01-06 06:52] LABS: AADO2 Arterial 614.4 mmHg (7.0-24.0); Arterial COHb 0.3 % (0.0-3.0); Arterial Fraction of Oxyhgb 80.4 % (93.0-99.0); Arterial HCO3 18.9 mmol/L (22.0-26.0); Arterial MetHb 0.3 % (0.0-1.5); Arterial Total Hemglobin 11.8 g/dl (12.0-18.0); MODE VENT - AC
[2017-01-06 07:03] LABS: ALBUMIN 2.2 g/dl (3.3-4.9); ALBUMIN/GLOBULIN RATIO 0.73; BILIRUBIN,DIRECT 0.3 mg/dl (0.00-0.20); BILIRUBIN,INDIRECT 0.5 mg/dl (0-1.1); BILIRUBIN,TOTAL 0.8 mg/dl (0.2-1.3); CREATININE 0.61 mg/dl (0.44-1.00); MAGNESIUM 1.9 mg/dl (1.7-2.5); PHOSPHORUS 3.1 mg/dl (2.5-4.9); TOTAL PROTEIN 5.2 g/dl (6.1-8.1)
[2017-01-06 07:07] LABS: CALCIUM 5.9 mg/dl (8.4-10.2)
--- NOTE | 2017-01-06 07:21 | RADRPT ---
PROCEDURE: XR Chest. CLINICAL INDICATION: Congestion TECHNIQUE: A single AP view of the chest was obtained. COMPARISON: Chest x-ray dated 01/05/2017 FINDINGS: The endotracheal tube tip is approximately 3.0 cm above the pauline. The tip of the enteric tube pr ojects over the left upper quadrant. There are diffuse bilateral interstitial opacities. No pleural effusion or pneumothorax is seen. T he cardiomediastinal silhouette is within normal limits for size. The osseous structures are unrema rkable. IMPRESSION: 1. Diffuse bilateral interstitial opacities, likely reflecting interstitial edema. Pneumonia could have a similar appearance. Overall, no significant interval change. 2. Tubes and lines, as described above. RPTAT: HH .Brandy Tavares MD, Date Time Electronically viewed and signed by .Brandy Tavares MD, MD on 01/06/2017 07:21 .G/
[2017-01-06] MEDS: ACETAMINOPHEN 650 MG SUPP PR SCH (07:30)
[2017-01-06] MEDS ORDERED: MAGNESIUM SULFATE 1 GM/D5W 100 ML IVPB ONE (07:30)
[2017-01-06] MEDS: LORAZEPAM 2 MG INJ IV PRN ×2 (07:55→08:38)
[2017-01-06] MEDS: INSULIN HUMAN REGULAR 100 UNIT in SOD CHLORIDE 0.9% 99 ML IV SCH (08:00)
[2017-01-06] MEDS ORDERED: CALCIUM GLUCONATE 10% 2 GM in SOD CHLORIDE 0.9% 100 ML IVPB ONE (08:00)
[2017-01-06] MEDS ORDERED: SOD CHLORIDE 0.9% 500 ML IV ONE (08:00)
[2017-01-06] MEDS: SOD CHLORIDE 0.9% 1,000 ML IV SCH (08:30)
[2017-01-06 08:37] LABS: AADO2 Arterial 608.4 mmHg (7.0-24.0); Allen Test ACCEPTAB; Arterial Base Excess -5.2 mmol/L (-3.0-3); Arterial COHb 0.3 % (0.0-3.0); Arterial Fraction of Oxyhgb 89.5 % (93.0-99.0); Arterial HCO3 20.2 mmol/L (22.0-26.0); Arterial MetHb 0.5 % (0.0-1.5); Arterial Total Hemglobin 11.1 g/dl (12.0-18.0); MODE VENT - AC
[2017-01-06] MEDS ORDERED: PROPOFOL 100 ML ONE (08:54)
[2017-01-06] MEDS ORDERED: PROPOFOL 100 ML IV PRN (09:00)
[2017-01-06] MEDS: D5W-0.45 NACL + KCL 20 MEQ 1,000 ML IV SCH (09:00)
[2017-01-06] MEDS ORDERED: PHENYTOIN 1,000 MG in SOD CHLORIDE 0.9% 100 ML IV ONE (09:00)
[2017-01-06] MEDS: HEPARIN 5,000 UNIT/0.5 ML VIAL SC SCH (09:24)
[2017-01-06 09:44] LABS: AADO2 Arterial 629.8 mmHg (7.0-24.0); Allen Test ACCEPTAB; Arterial Base Excess -2.3 mmol/L (-3.0-3); Arterial COHb 0.3 % (0.0-3.0); Arterial Fraction of Oxyhgb 65.8 % (93.0-99.0); Arterial HCO3 23.3 mmol/L (22.0-26.0); Arterial MetHb 0.3 % (0.0-1.5); MODE VENT - AC
[2017-01-06 09:45] LABS: AADO2 Arterial 596.4 mmHg (7.0-24.0); Arterial COHb 0.3 % (0.0-3.0); Arterial Fraction of Oxyhgb 88.8 % (93.0-99.0); Arterial HCO3 23.8 mmol/L (22.0-26.0); Arterial MetHb 0.4 % (0.0-1.5); Arterial Total Hemglobin 13.8 g/dl (12.0-18.0); MODE VENT - AC
[2017-01-06] MEDS ORDERED: EPINEPHrine 4 MG in DEXTROSE 5% 246 ML IV SCH (10:00)
--- NOTE | 2017-01-06 10:26 | CONS ---
Date/Time of Note Date/Time of Note DATE: 01/06/17 TIME: 10:22 Consult Date/Type/Reason Admit Date/Time January 04, 2017 at 13:19 Initial Consult Date 01/04/17 Type of Consultation: Pulmonary Subjective Patient coded twice yesterday asystole requiring CPR with ACLS protocol This morning she is having prolonged ongoing seizures Objective Vital Signs Date Time Temp Pulse Resp B/P Pulse Ox O2 Delivery O2 Flow Rate FiO2 01/06/17 09:00 126 20 97 100 01/06/17 07:00 99.4 98/42 Mechanical Ventilator 01/04/17 08:55 15 Intake and Output 01/05/17 01/05/17 01/06/17 15:00 23:00 07:00 Intake Total 2888.50 ml 661.45 ml 2854.0 ml Output Total 452 ml 732 ml 1720 ml Balance 2436.50 ml -70.55 ml 1134.0 ml Exam PHYSICAL EXAMINATION: GENERAL: Well-nourished, well-developed lady,on mechanical ventilation HEENT: Pupils are sluggish. CARDIAC: S1, S2, no added sounds or murmurs. CHEST: Diminished air entry bilaterally. ABDOMEN: Soft, nontender. No guarding or rebound. EXTREMITIES: No cyanosis, clubbing, 1+ edema. NEUROLOGIC: Unable to assess. Results/Medications Result Diagram: 01/06/17 0547 01/06/17 0547 Results 24 hrs Laboratory Tests Test 01/05/17 10:41 01/05/17 11:00 01/05/17 11:05 01/05/17 12:42 Bedside Glucose 113 88 Blood Gas Specimen Source Blood arterial Arterial Blood Date Drawn 01/05/2017 11:10:08 AM Arterial Blood pH (Temp corrected) 7.448 Arterial Blood pCO2 (Temp correct) 27.6 L Arterial Blood pO2 (Temp corrected) 82.5 Arterial Blood HCO3 19.4 L Arterial Blood Base Excess -4.6 L Arterial Blood Oxygen Saturation 97.1 Eliot Test ACCEPTAB Arterial Blood Gas Puncture Site Right Radial Arterial Blood Carboxyhemoglobin 0.3 Arterial Blood Methemoglobin 0.2 Blood Gas A-a O2 Differential 320.2 H Oxyhemoglobin Percent 96.6 Total Hemoglobin 12.3 Blood Gas Temperature 33.3 Blood Gas Respiration Rate 18.0 Blood Gas Actual Respiration Rate 18 Blood Gas Modality VENT - AC FiO2 60.0 Blood Gas Tidal Volume 450.0 Blood Gas Low PEEP Setting 5.0 Blood Gas Notified Whom JLD Blood Gas Notified Time 01/05/2017 11:32:08 AM White Blood Count 9.3 Red Blood Count 3.25 L Hemoglobin 11.3 L Hematocrit 33.9 L Mean Corpuscular Volume 104.3 H Mean Corpuscular Hemoglobin 34.8 H Mean Corpuscular Hemoglobin Concent 33.3 Red Cell Distribution Width 15.9 H Platelet Count 109 L Mean Platelet Volume 12.4 H Neutrophils % 77.9 H Lymphocytes % 17.5 Monocytes % 4.0 Eosinophils % 0.0 Basophils % 0.2 Nucleated Red Blood Cells % 0.4 H Neutrophils # 7.2 Lymphocytes # 1.6 Monocytes # 0.4 Eosinophils # 0.0 Basophils # 0.0 Nucleated Red Blood Cells # 0.0 Prothrombin Time 16.3 H Prothrombin Time Ratio 1.3 INR International Normalized Ratio 1.30 Activated Partial Thromboplast Time 43.8 H Fibrinogen 314.0 # Sodium Level 144 Potassium Level 4.4 Chloride Level 109 Carbon Dioxide Level 22 Anion Gap 17 H Blood Urea Nitrogen 5 L Creatinine 0.45 Glucose Level 114 Lactic Acid Level 3.4 H Calcium Level 6.0 L Phosphorus Level 2.9 Magnesium Level 1.9 Total Bilirubin 0.7 Direct Bilirubin 0.00 Indirect Bilirubin 0.7 Aspartate Amino Transf (AST/SGOT) 349 H Alanine Aminotransferase (ALT/SGPT) 94 H Alkaline Phosphatase 304 H Total Protein 6.1 Albumin 2.6 L Globulin 3.50 H Albumin/Globulin Ratio 0.74 Amylase Level 140 H Lipase 958 H Test 01/05/17 13:41 01/05/17 15:57 01/05/17 16:30 01/05/17 17:00 Bedside Glucose 88 84 Vancomycin Level Trough 20.5 *H Blood Gas Specimen Source Blood arterial Arterial Blood Date Drawn 01/05/2017 9:58:00 PM Arterial Blood pH (Temp corrected) 7.346 L Arterial Blood pCO2 (Temp correct) 43.6 Arterial Blood pO2 (Temp corrected) 39.6 *L Arterial Blood HCO3 23.3 Arterial Blood Base Excess -2.3 Arterial Blood Oxygen Saturation 66.2 L Eliot Test ACCEPTAB Arterial Blood Gas Puncture Site Left Radial Arterial Blood Carboxyhemoglobin 0.3 Arterial Blood Methemoglobin 0.3 Blood Gas A-a O2 Differential 629.8 H Oxyhemoglobin Percent 65.8 L Total Hemoglobin 11.0 L Blood Gas Temperature 37.0 Blood Gas Respiration Rate 18.0 Blood Gas Actual Respiration Rate 18 Blood Gas Modality VENT - AC FiO2 100.0 Blood Gas Tidal Volume 450.0 Blood Gas Low PEEP Setting 5.0 Blood Gas Critical Value Read Back ARCADIO LAUREN Blood Gas Notified Whom BR Blood Gas Notified Time 01/05/2017 10:06:00 PM Test 01/05/17 17:46 01/05/17 17:56 01/05/17 18:07 01/05/17 18:32 Bedside Glucose 61 L 97 92 White Blood Count 8.7 Red Blood Count 3.08 L Hemoglobin 10.6 L Hematocrit 32.1 L Mean Corpuscular Volume 104.2 H Mean Corpuscular Hemoglobin 34.4 H Mean Corpuscular Hemoglobin Concent 33.0 Red Cell Distribution Width 16.2 H Platelet Count 90 L Mean Platelet Volume 12.1 H Neutrophils % 74.2 Lymphocytes % 22.8 Monocytes % 2.2 Eosinophils % 0.1 Basophils % 0.2 Nucleated Red Blood Cells % 0.6 H Neutrophils # 6.5 Lymphocytes # 2.0 Monocytes # 0.2 L Eosinophils # 0.0 Basophils # 0.0 Nucleated Red Blood Cells # 0.1 H Prothrombin Time 17.7 H Prothrombin Time Ratio 1.4 INR International Normalized Ratio 1.45 Activated Partial Thromboplast Time 39.4 H Fibrinogen 312.0 Sodium Level 143 Potassium Level 3.4 L Chloride Level 111 H Carbon Dioxide Level 21 Anion Gap 14 Blood Urea Nitrogen 5 L Creatinine 0.48 Glucose Level 145 Lactic Acid Level 2.0 Calcium Level 5.6 *L Phosphorus Level 2.6 Magnesium Level 1.4 L Total Bilirubin 0.5 Direct Bilirubin 0.00 Indirect Bilirubin 0.5 Aspartate Amino Transf (AST/SGOT) 252 H Alanine Aminotransferase (ALT/SGPT) 86 H Alkaline Phosphatase 268 H Total Protein 5.6 L Albumin 2.4 L Globulin 3.20 Albumin/Globulin Ratio 0.75 Amylase Level 115 Lipase 858 H Test 01/05/17 19:38 01/05/17 21:18 01/05/17 21:43 01/05/17 21:55 Bedside Glucose 99 65 L 251 H White Blood Count 11.0 #H Red Blood Count 2.75 L Hemoglobin 9.7 L Hematocrit 29.0 L Mean Corpuscular Volume 105.5 H Mean Corpuscular Hemoglobin 35.3 H Mean Corpuscular Hemoglobin Concent 33.4 Red Cell Distribution Width 16.4 H Platelet Count 83 L Mean Platelet Volume 11.7 H Neutrophils % 63.0 Band Neutrophils % 3.0 Lymphocytes % 32.0 Monocytes % 1.0 Eosinophils % 1.0 Neutrophils # 6.9 Lymphocytes # 3.5 H Monocytes # 0.1 L Eosinophils # 0.1 Platelet Estimate PLT APPEAR DECREASED Prothrombin Time 18.5 H Prothrombin Time Ratio 1.4 INR International Normalized Ratio 1.53 Activated Partial Thromboplast Time 41.1 H Sodium Level 143 Potassium Level 2.4 *L Chloride Level 107 Carbon Dioxide Level 29 Anion Gap 9 # Blood Urea Nitrogen 6 L Creatinine 0.48 Glucose Level 251 #H Lactic Acid Level 4.6 *H Calcium Level 5.2 *L Phosphorus Level 2.3 L Magnesium Level 3.6 #H Total Bilirubin 0.5 Direct Bilirubin 0.00 Indirect Bilirubin 0.5 Aspartate Amino Transf (AST/SGOT) 242 H Alanine Aminotransferase (ALT/SGPT) 72 H Alkaline Phosphatase 220 H Total Protein 4.2 #L Albumin 1.7 L Globulin 2.50 Albumin/Globulin Ratio 0.68 Amylase Level 99 Lipase 852 H Test 01/05/17 21:58 01/05/17 22:46 01/05/17 23:22 01/06/17 00:38 Blood Gas Specimen Source Blood arterial Arterial Blood Date Drawn 01/05/2017 11:19:00 PM Arterial Blood pH (Temp corrected) 7.301 L Arterial Blood pCO2 (Temp correct) 49.3 H Arterial Blood pO2 (Temp corrected) 67.3 L Arterial Blood HCO3 23.8 Arterial Blood Base Excess -3.0 Arterial Blood Oxygen Saturation 89.4 L Eliot Test N/A Arterial Blood Gas Puncture Site Right Brachial Arterial Blood Carboxyhemoglobin 0.3 Arterial Blood Methemoglobin 0.4 Blood Gas A-a O2 Differential 596.4 H Oxyhemoglobin Percent 88.8 L Total Hemoglobin 13.8 Blood Gas Temperature 37.0 Blood Gas Respiration Rate 18.0 Blood Gas Actual Respiration Rate 18 Blood Gas Modality VENT - AC FiO2 100.0 Blood Gas Tidal Volume 450.0 Blood Gas Low PEEP Setting 10.0 Blood Gas Inspiratory Pressure 27.0 Blood Gas Notified Whom KM Blood Gas Notified Time 01/05/2017 11:32:00 PM Bedside Glucose 199 177 162 Test 01/06/17 01:43 01/06/17 02:45 01/06/17 03:42 01/06/17 03:48 Bedside Glucose 139 141 142 154 Test 01/06/17 04:34 01/06/17 05:00 01/06/17 05:47 01/06/17 06:50 Bedside Glucose 254 H 240 H Blood Gas Specimen Source Blood arterial Arterial Blood Date Drawn 01/06/2017 5:10:24 AM Arterial Blood pH (Temp corrected) 7.251 *L Arterial Blood pCO2 (Temp correct) 44.0 Arterial Blood pO2 (Temp corrected) 54.6 *L Arterial Blood HCO3 18.9 L Arterial Blood Base Excess -8.0 L Arterial Blood Oxygen Saturation 80.9 L Eliot Test N/A Arterial Blood Gas Puncture Site Right Brachial Arterial Blood Carboxyhemoglobin 0.3 Arterial Blood Methemoglobin 0.3 Blood Gas A-a O2 Differential 614.4 H Oxyhemoglobin Percent 80.4 L Total Hemoglobin 11.8 L Blood Gas Temperature 37.0 Blood Gas Respiration Rate 18.0 Blood Gas Actual Respiration Rate 18 Blood Gas Modality VENT - AC FiO2 100.0 Blood Gas Tidal Volume 450.0 Blood Gas Low PEEP Setting 8.0 Blood Gas Critical Value Read Back Keri BOYD RN Blood Gas Notified Whom MG Blood Gas Notified Time 01/06/2017 5:21:31 AM White Blood Count 11.3 H Red Blood Count 3.11 L Hemoglobin 10.5 L Hematocrit 33.9 L Mean Corpuscular Volume 109.0 H Mean Corpuscular Hemoglobin 33.8 H Mean Corpuscular Hemoglobin Concent 31.0 L Red Cell Distribution Width 17.1 H Platelet Count 104 #L Mean Platelet Volume 12.2 H Neutrophils % 89.0 H Lymphocytes % 5.8 L Monocytes % 4.0 Eosinophils % 0.0 Basophils % 0.1 Nucleated Red Blood Cells % 1.9 H Neutrophils # 10.1 H Lymphocytes # 0.7 L Monocytes # 0.5 Eosinophils # 0.0 Basophils # 0.0 Nucleated Red Blood Cells # 0.2 H Prothrombin Time 18.5 H Prothrombin Time Ratio 1.4 INR International Normalized Ratio 1.53 Activated Partial Thromboplast Time 34.4 Fibrinogen 330.0 Sodium Level 142 Potassium Level 4.0 Chloride Level 110 Carbon Dioxide Level 24 Anion Gap 12 Blood Urea Nitrogen 5 L Creatinine 0.61 Glucose Level 298 H Calcium Level 5.9 *L Phosphorus Level 3.1 Magnesium Level 1.9 # Total Bilirubin 0.8 Direct Bilirubin 0.30 #H Indirect Bilirubin 0.5 Aspartate Amino Transf (AST/SGOT) 443 H Alanine Aminotransferase (ALT/SGPT) 97 H Alkaline Phosphatase 234 H Total Protein 5.2 #L Albumin 2.2 L Globulin 3.00 Albumin/Globulin Ratio 0.73 Amylase Level 105 Lipase 862 H Test 01/06/17 07:00 01/06/17 07:56 01/06/17 09:05 Blood Gas Specimen Source Blood arterial Arterial Blood Date Drawn 01/06/2017 8:03:56 AM Arterial Blood pH (Temp corrected) 7.333 L Arterial Blood pCO2 (Temp correct) 38.9 Arterial Blood pO2 (Temp corrected) 65.7 L Arterial Blood HCO3 20.2 L Arterial Blood Base Excess -5.2 L Arterial Blood Oxygen Saturation 90.2 L Eliot Test ACCEPTAB Arterial Blood Gas Puncture Site Right Radial Arterial Blood Carboxyhemoglobin 0.3 Arterial Blood Methemoglobin 0.5 Blood Gas A-a O2 Differential 608.4 H Oxyhemoglobin Percent 89.5 L Total Hemoglobin 11.1 L Blood Gas Temperature 37.0 Blood Gas Respiration Rate 18.0 Blood Gas Actual Respiration Rate 24 Blood Gas Modality VENT - AC FiO2 100.0 Blood Gas Tidal Volume 450.0 Blood Gas Low PEEP Setting 10.0 Blood Gas Notified Whom JLD Blood Gas Notified Time 01/06/2017 8:37:35 AM Bedside Glucose 228 H 230 H Medications Current Medications Ondansetron HCl (Zofran Inj) 4 mg Q6H PRN IV NAUSEA AND/OR VOMITING; Start at 13:30 Acetaminophen (Tylenol Tab) 650 mg Q6H PRN PO PAIN LEVEL 1-3 OR FEVER; Start at 13:30 Acetaminophen/ Hydrocodone Bitart ([place] (5/325)) 1 tab Q6H PRN PO MODERATE PAIN LEVEL 4-6; Start 01/04/17 at 13:30 Morphine Sulfate (morphine) 2 mg Q4H PRN IV SEVERE PAIN LEVEL 7-10; Start 01/04 at 13:30 Docusate Sodium (Colace) 100 mg Q12H PRN PO CONSTIPATION; Start 01/04/17 at 13: 30 Magnesium Hydroxide (Milk Of Mag) 30 ml DAILY PRN PO CONSTIPATION; Start at 13:30 Sodium Biphosphate/ Sodium Phosphate (Fleet Enema) 133 ml DAILY PRN SD CONSTIPATION; Start 01/04/17 at 13:30 Pantoprazole (Protonix Iv) 40 mg DAILY@06 IV Last administered on 01/06/17 06: 13; Admin Dose 40 MG; Start 01/05/17 at 06:00 Heparin Sodium (Porcine) (Heparin (5000 Units/0.5 ml)) 5,000 unit Q12 SC Last administered on 01/06/17 09:24; Admin Dose 5,000 UNIT; Start 01/04/17 at 21:00 Lorazepam (Ativan) 1 mg Q1H PRN IV CONTROL WITHDRAWAL SYMPTOMS; Start 01/04/17 at 13:30 Hydralazine HCl (Apresoline) 10 mg Q6H PRN IV ELEVATED BLOOD PRESSURE; Start at 13:30 Nitroglycerin (Nitroglycerin (Sl Tab) 0.4 Mg) 1 tab Q5M PRN SL ANGINA; Start at 13:30 Acetaminophen (Tylenol Supp) 650 mg Q4H PRN SD TEMP > 37C; Start 01/04/17 at 13 :30 Acetaminophen (Tylenol Liquid) 650 mg Q4H PRN PO TEMP > 37C; Start 01/04/17 at 13:30 Acetaminophen (Tylenol Supp) 500 mg Q6H SD Last administered on 01/05/17 23:31 ; Admin Dose 500 MG; Start 01/05/17 at 13:30 Meperidine HCl (Demerol) 12.5 mg Q4H PRN IV POST OPERATIVE SHIVERING; Start at 13:30 Meperidine HCl (Demerol) 25 mg Q4H PRN IV POST OPERATIVE SHIVERING; Start 01/04 at 13:30 Eye Lubricant ([place] Oint) 1 applic Q6 BOTH EYES Last administered on 01/06/17 06:11; Admin Dose 1 APPLIC; Start 01/04/17 at 18:00 Eye Lubricant (Artificial Tears Oph) 2 drop Q6 BOTH EYES Last administered on 06:10; Admin Dose 2 DROP; Start 01/04/17 at 18:00 Diagnostic Test (Pha) (Accu-Chek) 1 ea Q1H XX Last administered on 01/06/17 09 :04; Admin Dose 1 EA; Start 01/04/17 at 13:30 Dextrose (D50w Syringe) 25 ml Q15M PRN IV Till BS 80 mg/dL or above x2 Last administered on 01/05/17 21:19; Admin Dose 25 ML; Start 01/04/17 at 13:30 Dextrose 50 ml 50 ml Q15M PRN IV Till BS 80 mg/dL or above x2; Start 01/04/17 at 13:30 Multivitamins 10 ml/Thiamine HCl 100 mg/Folic Acid 1 mg/Sodium Chloride 1,011.2 ml @ 125 mls/ hr DAILY@09 IVPB Last administered on 01/05/17 10:21; Admin Dose 125 MLS/HR; Start 01/05/17 at 09:00 Cefepime HCl 50 ml @ 100 mls/hr Q12 IVPB Last administered on 01/05/17 21:15 ; Admin Dose 100 MLS/HR; Start 01/04/17 at 17:00 Sodium Chloride 1,000 ml @ 100 mls/hr Q10H IV Last administered on 01/05/17 20:22; Admin Dose 100 MLS/HR; Start 01/05/17 at 02:30 Vecuronium [place] 100 mg/ Dextrose 100 ml @ 0 mls/hr TITRATE IV Last administered on 01/05/17 06:29; Admin Dose 3.25 MLS/HR; Start 01/05/17 at 05:00 Midazolam HCl 50 ml @ 1 mls/hr TITRATE IV Last administered on 01/06/17 06:12 ; Admin Dose 10 MLS/HR; Start 01/05/17 at 10:30 Vancomycin HCl 750 mg/Sodium Chloride 150 ml @ 75 mls/hr Q8H IVPB Last administered on 01/06/17 06:17; Admin Dose 75 MLS/HR; Start 01/05/17 at 22:00 Potassium Chloride/Dextrose/ Sod Cl 1,000 ml @ 100 mls/hr Q10H IV Last administered on 01/05/17 23:22; Admin Dose 100 MLS/HR; Start 01/05/17 at 23:00 Phenylephrine HCl 40 mg/Dextrose 500 ml @ 75 mls/hr TITRATE IV Last administered on 01/06/17 05:45; Admin Dose 225 MLS/HR; Start 01/06/17 at 01:30 Norepinephrine/ Dextrose (Levophed/D5W) 500 ml @ 1.87 mls/hr TITRATE IV Last administered on 01/06/17 09:26; Admin Dose 46.87 MLS/HR; Start 01/06/17 at 03: 30 Chlordiazepoxide (Librium) 50 mg QID PO Last administered on 01/06/17 09:20; Admin Dose 50 MG; Start 01/06/17 at 05:00 Acetaminophen (Tylenol Liquid) 500 mg Q6 PO Last administered on 01/06/17 06: 13; Admin Dose 500 MG; Start 01/06/17 at 06:05 Lorazepam 2 mg 2 mg Q1HWA PRN IV SEIZURES Last administered on 01/06/17 07:55 ; Admin Dose 2 MG; Start 01/06/17 at 08:30 Propofol 100 ml @ 1.95 mls/hr Q12H PRN IV SEIZURES; Start 01/06/17 at 09:00 Epinephrine/ Dextrose (EPINEPHrine/D5W) 250 ml @ 3.75 mls/hr TITRATE IV ; Start 01/06/17 at 10:00 Assessment/Plan Chief Complaint/Hosp Course IMPRESSION AND PLAN: 1. Cardiopulmonary arrest. 2. Ventricular fibrillation. 3. Possible anoxic brain injury. 4. Possible aspiration pneumonia. 5. Renal insufficiency 6. Incomplete data. Cardiomyopathy with decreased ejection fraction 7. Pancreatitis, likely secondary to a significant ETOH. 8. Seizures likely secondary to anoxic brain injury PLAN: 1. Continue mechanical ventilation 2. Continue sedation and paralysis. 3. Antibiotics for aspiration pneumonia. 4. Neurology evaluation and EEG 5. DVT and GI prophylaxis. 6. Start Dilantin for seizures Problems: LEAH LESTER MD, [facility] January 06, 2017 10:26
--- NOTE | 2017-01-06 10:29 | EN ---
Date/Time of Note Date/Time of Note DATE: 01/06/17 TIME: 10:26 Event Note Medicine Medicine Event Note Patient had cardiac arrest Received prolonged ACLS protocol, combination of ventricular fibrillation and PEA. Despite prolonged resuscitation 25 minutes patient did not regain spontaneous circulation for any extended period of time. Resuscitation was stopped after 25 minutes of CPR. On examination pupils fixed and dilated No heart sounds No breath sounds No spontaneous respiratory effort Response to stimuli Patient at 10 AM. Patient's mother was present resuscitation social services director currently with patient's next of kin LEAH LESTER MD, [facility] January 06, 2017 10:29
--- NOTE | 2017-01-06 14:15 | DS ---
DATE OF ADMISSION: 01/04/2017 DATE OF DISCHARGE: 01/06/2017 SUMMARY TIME OF EXPIRATION: 10:02 a.m. PRIMARY CAUSE OF : Cardiopulmonary arrest. SECONDARY CAUSES OF : 1. Congestive heart failure exacerbation. 2. Acute systolic dysfunction dated 01/05/2017. 3. Shock, most probably cardiogenic shock dated 01/06/2017. 4. Sepsis secondary to underlying aspiration pneumonitis and urinary tract infection dated 01/05/20 17. 4. Acute pancreatitis 01/04/2017. 5. Hypokalemia dated 01/05/2017. 6. Cardiac arrhythmia dated 01/06/2017. 7. Metabolic acidosis dated 01/06/2017. FINAL DIAGNOSES: 1. Sepsis with underlying shock. 2. Cardiogenic shock. 3. Ischemic cardiomyopathy. 4. Congestive heart failure exacerbation. Systolic dysfunction. 5. Lactic acidosis. 6. Pancreatitis. 7. Alcohol abuse. 8. Macrocytic anemia. 9. 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 10. Transaminitis without hyperbilirubinemia. 11. Thrombocytopenia CONSULTATIONS: 1. Dr. Joe Nettles, cardiology. 2. Dr. Leonardo Melo, neurology. 3. Dr. Miguelangel Harrison, pulmonary. 4. Dr. Bradley Rosas, cardiology. HOSPITAL COURSE: This is a 31-year-old female with a past medical history of heavy alcohol abuse an d prior pancreatitis, who was brought in by ambulance because of a cardiac arrest. As per ER documen tation, the patient has been drinking heavily on the previous day of hospitalization. On the day of hospitalization, the patient was found to have shortness of breath and later she became unresponsiv e. The patient's family member initiated cardiopulmonary resuscitation and paramedics were called. The patient was initially found to be in pulseless ventricular fibrillation arrest. The patient wa s defibrillated multiple times on the field and she was intubated on the field and was brought to [facility] emergency room. In the emergency room, the patient was noticed to have severe hypokalemia and lac tic acidosis. Hypokalemia protocol was started on this patient. The patient was moved to intensive care unit. The patient was rewarmed from hypothermia protocol on 01/05/2017. Meanwhile, the patient was found to have severe cardiomyopathy with ejection fraction of only 20% with severe left ventricular systolic dysfunction. The patient went into atrial tachyca rdia and the patient was treated with beta blockers to help reduce heart rate. However, the patient 's blood pressure dropped down and the patient was started on pressors to keep the patient's blood p ressure elevated. The patient was started on multiple pressors to maintain her blood pressure. The patient was coded twice on 01/06/2017. The patient went into another episode of pulseless electric al activity on 01/06/2017 around 9:30 a.m. CPR was tried for approximately 20 minutes with no return of spontaneous circulation. 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 Meanwhile, the patient was maintained on antibiotics for underlying aspiration pneumonitis and also the patient had positive urinary tract infection. The patient was also noticed to have significant transaminitis without any hyperbilirubinemia, most probably secondary to her underlying alcohol abus e. The patient also had evidence of pancreatitis. The patient's urine drug screen was negative for any opioids or any recreational drugs. However, the patient's ethanol alcohol level was 142 upon a dmission. After the patient was the patient's family was given enough time for grieving. The patient's mother was very much involved in the patient's care and was updated throughout the patient's hospit al course including the poor prognosis. The patient's mother understood the patient's poor prognosi s. PERTINENT LABORATORY AND DIAGNOSTIC DATA: 1. A 2D echocardiogram. Moderate enlargement of the left ventricular cavity. Severe left ventricu lar systolic dysfunction. Ejection fraction is 20%. Severe global hypokinesis. Estimated peak PA systolic pressure [address] angiogram of the chest on 01/04/2017. No evidence of pulmonary embolism. No mediastinal hem atoma seen. Patchy infiltrates identified in bilateral lungs with preferentially involvement of the right upper lobe and superior segment of the right lower lobe. This may be due to infection, pneum onitis, pulmonary hemorrhage or developing edema, hepatic steatosis. 3. Brain CT scan. No acute intracranial findings. 4. Blood culture. No growth after 2 days. 5. Urine culture. Positive for Streptococcus agalactiae. 6. Latest CBC: WBC 11.3, hemoglobin 10.5, hematocrit 33.9, platelet count 104. 7. Latest BMP: Sodium 142, potassium 4.0, chloride 110, carbon dioxide 24, anion gap 12, BUN 5, c reatinine 0.61, glucose 298, and calcium 5.9, phosphorus 3.1, magnesium 1.9, AST 443, ALT of 97, alk alanna phosphatase 234. 8. Serum alcohol level of 142. At this time, we would like to thank all the consultants for seeing the patient and providing clinic al recommendations. The case and management of this patient was fully discussed with Dr. Kiran. Dictated By: MORALES BOTELLO SHOE HANDLER for RUPESH KIRAN MD AM/NTS Conf#: [id number] DID#: [id number]
--- NOTE | 2017-01-06 15:07 | DES ---
DATE OF ADMISSION: 01/04/2017 DATE OF EXPIRATION: 01/06/2017 TIME OF EXPIRATION: 10:00 a.m. PRIMARY CAUSE OF : Cardiopulmonary arrest. SECONDARY CAUSES OF : 1. Acute congestive heart failure exacerbation, systolic dysfunction dated . 2. Shock, most probably cardiogenic and septic shock dated 01/06/2017. 3. Sepsis secondary to underlying aspiration pneumonitis and urinary tract infection dated 01/04/2017. 4. Acute pancreatitis 01/04/2017. 5. Hypokalemia dated 01/05/2017. 6. Cardiac arrhythmia dated 01/06/2017. 7. Metabolic acidosis dated 01/06/2017. FINAL DIAGNOSES: 1. Sepsis with underlying shock. 2. Cardiogenic shock. 3. Ischemic cardiomyopathy. 4. Congestive heart failure exacerbation. Systolic dysfunction. 5. Lactic acidosis. 6. Pancreatitis. 7. Alcohol abuse. 8. Macrocytic anemia. 9. 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 10. Transaminitis without hyperbilirubinemia. 11. Thrombocytopenia. CONSULTATIONS: 1. Dr. Joe Ntetles, Cardiology. 2. Dr. Leonardo Melo, Neurology. 3. Dr. Miguelangel Harrison, Pulmonary. 4. Dr. Bradley Orona, Cardiology. HOSPITAL COURSE: This is a 31-year-old female with a past medical history of heavy alcohol abuse and prior pancreatitis, who was brought in by ambulance because of a cardiac arrest. As per ER documentation, the patient has been drinking heavily on the previous day of hospitalization. On the day of hospitalization, the patient was found to have shortness of breath and later she became unresponsive. One of the patient's family member initiated cardiopulmonary resuscitation and paramedics were called. The patient was initially found to be in pulseless ventricular fibrillation arrest. The patient was defibrillated multiple times on the field and she was intubated on the field and was brought to the emergency room. In the emergency room, the patient was noticed to have severe hypokalemia and lactic acidosis. Hypokalemia protocol was started on this patient. The patient was moved to intensive care unit. The patient was rewarmed from hypothermia protocol on 01/05/2017. Meanwhile, the patient was found to have severe cardiomyopathy with ejection fraction of only 20% with severe left ventricular systolic dysfunction. The patient went into atrial tachycardia and the patient was treated with beta blockers to help reduce heart rate. However, the patient's blood pressure dropped down and the patient was started on pressors to keep the patient's blood pressure elevated. The patient was started on multiple pressors to maintain her blood pressure. The patient was coded twice on 01/06/2017. The patient went into another episode of pulseless electrical activity on 01/06/2017 around 9:30 a.m. CPR was tried for approximately 25 minutes with no return of spontaneous circulation. The patient was declared by the copper miner on 01/06/2017 at 10 a.m. Meanwhile, the patient was maintained on antibiotics for underlying aspiration pneumonitis and also the patient had positive urinary tract infection. The patient was also noticed to have significant transaminitis without any hyperbilirubinemia, most probably secondary to her underlying alcohol abuse. The patient also had evidence of pancreatitis. The patient's urine drug screen was negative for any opioids or any recreational drugs. However, the patient's ethanol level was 142 upon admission. After the patient was the patient's family was given enough time for grieving. The patient's mother was very much involved in the patient's care and was updated throughout the patient's hospital course including the poor prognosis. The patient's mother understood the patient's poor prognosis. PERTINENT LABORATORY AND DIAGNOSTIC DATA: 1. 2D echocardiogram. Moderate enlargement of the left ventricular cavity. Severe left ventricular systolic dysfunction. Ejection fraction is 20%. Severe global hypokinesis. Estimated peak PA systolic pressure [address] angiogram of the chest on 01/04/2017. No evidence of pulmonary embolism. No mediastinal hematoma seen. Patchy infiltrates identified in bilateral lungs with preferentially involvement of the right upper lobe and superior segment of the right lower lobe. This may be due to infection, pneumonitis, pulmonary hemorrhage or developing edema, hepatic steatosis. 3. Brain CT scan. No acute intracranial findings. 4. Blood culture. No growth after 2 days. 5. Urine culture. Positive for Streptococcus agalactiae. 6. Latest CBC: WBC 11.3, hemoglobin 10.5, hematocrit 33.9, platelet count 104. 7. Latest BMP: Sodium 142, potassium 4.0, chloride 110, carbon dioxide 24, anion gap 12, BUN 5, creatinine 0.61, glucose 298, and calcium 5.9, phosphorus 3.1, magnesium 1.9, AST 443, ALT of 97, alkaline phosphatase 234. 8. Serum alcohol level of 142. At this time, we would like to thank all the consultants for seeing the patient and providing clinical recommendations. The case and management of this patient was fully discussed with Dr. Kiran. MORALES KIRAN MD, AM/RAFAEL Conf#: [id number] DID#: [id number] MTDD
--- NOTE | 2017-01-07 20:34 | RADRPT ---
Vent Rate: 123 bpm RR Interval: 0 msec [place] Interval: 0 msec QRS Duration: 112 msec QT Interval: 338 msec QTC Interval: 483 msec P-R-T [place]: 0 - 64 - 33 degrees Age and gender specific ECG analysis Wide compolex tachycardia ST elevation, consider anterolateral injury or acute infarct ST elevation, consider inferior injury or acute infarct ACUTE [place] Abnormal ECG Electronically Signed By: Cayetano Fagan [id number]
== END 2017-01-06 10:02 | disposition expired | DRG 871 ==
LOC: EDBD 08:55 → E/R 08:55 → ICU 13:19
PROVIDERS: ADMIT Hospitalist; ATTEND Hospitalist
PROC: 06HY33Z Insertion of Infusion Device into Lower Vein, Percutaneous Approach (ICD-10-PCS; principal; 2017-01-04)
PROC: 5A12012 Performance of Cardiac Output, Single, Manual (ICD-10-PCS; 2017-01-04)
PROC: 5A12012 Performance of Cardiac Output, Single, Manual (ICD-10-PCS; 2017-01-05)
PROC: 5A12012 Performance of Cardiac Output, Single, Manual (ICD-10-PCS; 2017-01-06)
DX: A41.9 Sepsis, unspecified organism (principal); J69.0 Pneumonitis due to inhalation of food and vomit; I49.01 Ventricular fibrillation; R65.21 Severe sepsis with septic shock; I50.23 Acute on chronic systolic (congestive) heart failure; G93.1 Anoxic brain damage, not elsewhere classified; K85.90 Acute pancreatitis without necrosis or infection, unspecified; E87.2 Acidosis; N39.0 Urinary tract infection, site not specified; I47.1 Supraventricular tachycardia; I46.2 Cardiac arrest due to underlying cardiac condition; I25.5 Ischemic cardiomyopathy; E87.6 Hypokalemia; D53.9 Nutritional anemia, unspecified; F10.10 Alcohol abuse, uncomplicated; R56.9 Unspecified convulsions; D69.6 Thrombocytopenia, unspecified; I48.91 Unspecified atrial fibrillation; R74.0 Nonspecific elevation of levels of transaminase and lactic acid dehydrogenase [LDH]
CPT/HCPCS: 36600; 70450; 71010; 71275; 76705; 76937; 80053; 80061; 80202; 80306; 80307; 81001; 81003; 82150; 82550; 82553; 82803; 82962; 83036; 83605; 83690; 83735; 84100; 84132; 84439; 84443; 84484; 84703; 85025; 85384; 85610; 85730; 87040; 87086; 92950; 93005; 93306; 94002; 94003; 94770; 96361; 96365; 96372; 96375; C9113; J0171; J0282; J0610; J0692; J1165; J1644; J1815; J1940; J2060; J2250; J3010; J3370; J3411; J3475; J3480; J7030; J7040; J7050; J7060; J7070; P9047; Q9967